=== PATIENT | male | born 1955 | race Caucasian/White ===

== ENCOUNTER 2024-08-07 15:55 | Outpatient (AMB) | payer MEDICARE, SELFPAY ==
--- NOTE | 2024-08-07 15:58 | MHC.PC.OV ---
Vital Signs 08/07/24 15:59 Height 5 ft 5.35 in Weight 198 lb 4 oz BMI 32.6 BP 152/76 H Blood Pressure Location Lt brachial Position Sitting Pulse 77 Pulse Source Pulse Oximeter Temp 97.3 F Temp Source Temporal Artery Scan Pulse Oximetry (%) 97 Oxygen Delivery Method Room Air Intake Visit Reasons: establish care Director Cloud Transformation Required: No Accompanied by: Self / Same As Patient Allergies shell fish Allergy (Mild, Uncoded 08/07/24 16:08) sweating and an itchy throat. Medication List - Last Reconciled 08/07/24 by Lucien Luevano PA-C albuterol sulfate 90 mcg/actuation inhalation atenolol mg PO atorvastatin 10 mg PO DAILY escitalopram oxalate 10 mg PO DAILY losartan 100 mg PO DAILY metformin ER 500 mg PO DAILY omeprazole 20 mg PO DAILY rivaroxaban (Xarelto) 20 mg PO DAILY HPI establish care HPI Details Patient is a 69-year-old male here today establish care visit. Previous PCP was Patient has a past medical history significant for hypertension, hyperlipidemia, GERD, type 2 diabetes and AFib, COPD . .. COPD: Patient was a previous smoker, he does use an albuterol inhaler from time to time . He otherwise reports no shortness of breath or regular cough. .. AFib: Cardiac health concerns persist as indicated by atrial fibrillation episodes, and possible cardiac ablation has been considered. He continues on Xarelto without overt sent to bleeding. He is under rate control with a beta-radha. .. Hypertension: Blood pressure today in office elevated, he continues on losartan in beta-radha. He does not regularly check his blood pressure at this time. Advised on starting blood pressure monitoring at home and if systolic blood pressures above 140 will consider make an adjustment in antihypertensive medication .. Hyperlipidemia: Patient continues on atorvastatin 10 mg without side effect. PLAN: Will check a fasting lipid to ensure appropriate total cholesterol and LDL .. Type 2 diabetes: Patient continues on metformin 500 mg daily over the past 10-15 years. Today's A1c is 6.5. .. Class 1 obesity: Patient does understand his BMI is over 30 will continue working being physically active and adapting to better eating habits to reduce his weight Colon cancer screening- Has polyps - gets Colon done Dr [facility] Social History (Updated 08/07/24 @ 16:15 by Lucien Luevano PA-C) Alcohol intake: former Patient Tobacco Use Status: Former Tobacco user Current occupational status: retired Current occupation: [employer] office Spinal Integration Questionnaire PHQ-9 Over the last 2 weeks, how often have you been bothered by any of the following problems? 1. Little interest or pleasure in doing things: not at all 2. Feeling down, depressed, or hopeless: not at all 3. Trouble falling or staying asleep, or sleeping too much: not at all 4. Feeling tired or having little energy: not at all 5. Poor appetite or overeating: not at all 6. Feeling bad about yourself - or that you are a failure or have let yourself or your family down: not at all 7. Trouble concentrating on things, such as reading the newspaper or watching television: not at all 8. Moving or speaking so slowly that other people could have noticed. Or the opposite - being so fidgety or restless that you have been moving around a lot more than usual: not at all 9. Thoughts that you would be better off or of hurting yourself in some way: not at all Total score: 0 Depression Screening Interpretation: Negative Depression Screening Done: Yes 58688 - PHQ-9 Billing: Yes Source: Developed by Drs. Jeremiah Stewart, Debra Jackson, Shahid Mcallister and colleagues, with an educational alfredo from [email or web address]. Thrive Questionnaire Date Thrive assessed: 08/07/24 I am a: Patient What is your living situation today?: I have a steady place to live Within the past 12 months, did the food you bought not last and you didn't have the money to get more?: Never true Within the past 12 months, did you worry whether your food would run out before you got money to buy more?: Never true Do you have trouble paying for medicines?: No Do you have trouble getting transportation to medical appointments?: No Do you have trouble paying your heating and electricity bill?: No Do you have trouble taking care of your child, family member or friend?: No Do you have trouble with day-to-day activities such as bathing, preparing meals, shopping, managing finances, etc.?: No Are you currently unemployed and looking for a job?: No Are you interested in more education?: No Please select the resources that you would like help with: None Currently or been in a relationship where the following occur: No concerns reported THRIVE Score: 0 AUDIT C Alcohol Use Questionnaire (AUDIT-C) 1. How often do you have a drink containing alcohol?: Never 3. How often do you have six or more drinks on one occasion?: Never Total Score: 0 JOSE-7 AMB Questionnaire JOSE-7 Date JOSE - 7 assessed: 08/07/24 Feeling nervous, anxious, or on edge: 0 = Not at all Not being able to stop or control worryin = Not at all Worrying too much about different things: 0 = Not at all Trouble relaxin = Not at all Being so restless that it is hard to sit still: 0 = Not at all Becoming easily annoyed or irritable: 0 = Not at all Feeling afraid as if something awful might happen: 0 = Not at all Total JOSE-7 score (0-4 normal; 5-9 mild; 10-14 moderate; 15-21 severe): 0 Source: Developed by Drs. Jeremiah Stewart, Debra Jackson, Shahid Mcallister and colleagues, with an educational alfredo from [email or web address]. JOSE-7 Assessment Billing JOSE-7 Assessment Tool: JOSE-7 Assessment 97639 Review of Systems Const Denies headache(s) Eyes Denies loss of vision ENT Denies vertigo, Denies dizziness, Denies headache(s) and Denies sore throat Card Denies chest pain, Reports irregular heart rhythm, Denies leg edema, Denies lightheadedness and Reports palpitations Resp Denies cough, Denies hemoptysis and Denies wheezing GI Denies abdominal pain, Denies melena, Denies constipation, Denies diarrhea and Denies vomiting Denies dysuria, Denies urinary frequency and Denies urinary urgency Musc Denies arthralgias, Denies joint swelling, Denies numbness and Denies tingling Neuro Denies Abnormal speech present, Denies behavioral changes, Denies vertigo, Denies dizziness, Denies headache(s), Denies loss of vision, Denies memory loss, Denies numbness and Denies tingling Psych Denies anxiety, Denies behavioral changes, Denies depression, Denies memory loss and Denies panic attacks Endo Reports palpitations Mathew/Lymph Denies easy bleeding and Denies easy bruising Aller/Immun Denies wheezing Physical exam (Primary Care) Vital Signs: Last Vital Signs Temp 97.3 F 08/07/24 15:59 Pulse 77 08/07/24 15:59 BP 152/76 H 08/07/24 15:59 Pulse Ox 97 08/07/24 15:59 Oxygen Delivery Method Room Air 08/07/24 15:59 BMI result Body Mass Index 32.6 BMI Assessment/Plan discussion: High BMI High, discussed plan: lifestyle, weight reduction, dietary and physical activity Tobacco/Smoking Status: Tobacco use Status Patient Tobacco Use Status Former Tobacco user 08/07/24 16:15 PHQ-9: PHQ-9 Score PHQ-9: Total score 0 08/07/24 16:27 Depression Screening Interpretation: Negative Thrive Assessment: Date of Thrive Assessment Date Thrive assessed 08/07/24 08/07/24 16:06 Currently or been in a relationship where the following occur: No concerns reported Const General: healthy appearing, no acute distress, alert and awake Nutritional Appearance: well nourished Orientation/consciousness: oriented to person, oriented to place and oriented to time HENMT Ears: TM's normal bilaterally General nose exam: Normal nasal mucous membranes and turbinates present Eyes Conjunctivae: conjunctivae normal Sclerae: sclerae normal Pupils: Equal, round and reactive pupils present Neck Neck: Yes no lymphadenopathy and Yes no JVD Thyroid: Thyroid normal Carotids: no bruits Resp Effort & Inspection: normal respiratory effort and not tachypneic Auscultation: no crackles, no rales, no rhonchi and no wheezes Cardio Rate: regular rate Rhythm: regular rhythm Heart sounds: no murmurs and normal S1 and S2 GI Palpation (GI): Soft to palpation, nontender, no hepatomegaly and no splenomegaly Auscultation: normal bowel sounds Skin General skin exam: no rashes or lesions noted and dry skin Neuro General: oriented to person, oriented to place and oriented to time Cranial nerves: Yes Equal, round and reactive pupils present Speech: No Abnormal speech present Gait exam (Neuro): Normal gait present Motor exam (neuro): no tremor noted Extrem Right upper extremity: full ROM Left upper extremity: full ROM Right lower extremity: full ROM; no edema Left lower extremity: full ROM; no edema Psych Mental Status: mental status grossly normal Speech and movement: Normal speech and movement present Affect: normal affect Attitude: cooperative Thought process: Normal thought process present Results AMB Hemoglobin A1c AMB Hemoglobin A1c 6.5 % Last Edit by ANA LILIA Wilson on 08/07/24 16:27 Results Reviewed Results Reviewed: Laboratory Last Values Hgb A1c (Clinic) 6.5 % (4.0-6.0) H 08/07/24 16:06 Coding Level of Care Code New Pt Level 4 (72115) Diagnoses Primary hypertension I10 Hypertension type: primary hypertension Type 2 diabetes mellitus with hyperglycemia, without long-term current use of insulin E11.65 Diabetes mellitus complication status: with hyperglycemia Diabetes mellitus superintendent [employer] insulin use: without [employer] use Chronic atrial fibrillation I48.20 Atrial fibrillation type: unspecified chronic Benign prostatic hyperplasia with weak urinary stream N40.1; R39.12 Lower urinary tract symptom detail: weak urinary stream Lower urinary tract symptom presence: symptoms present Former smoker Z87.891 Centrilobular emphysema J43.2 COPD type: emphysema Emphysema type: centrilobular Additional Codes JOSE-7 Assessment Billing - JOSE-7 Assessment Tool: JOSE-7 Assessment 98834 ([id number]) PHQ-9 - 36004 - PHQ-9 Billing: Yes ([id number]) Assessment & Plan Assessment & Plan (1) HTN (hypertension): Code(s): I10 - Essential (primary) hypertension Category: Medical Qualifiers: Hypertension type: primary hypertension Qualified Code(s): I10 - Essential (primary) hypertension Plan: The patient was advised to increase frequency of blood pressure monitoring at home and a change in medication to metoprolol was discussed for enhanced control. Goal blood pressures to be below 140/90 (2) DMII (diabetes mellitus, type 2): Code(s): E11.9 - Type 2 diabetes mellitus without complications Category: Medical Qualifiers: Diabetes mellitus complication status: with hyperglycemia Diabetes mellitus superintendent [employer] insulin use: without intermediate use Qualified Code(s): E11.65 - Type 2 diabetes mellitus with hyperglycemia Plan: The current metformin regimen is continued with recommendation to monitor A1c levels to maintain glycemic control. (3) Afib: Code(s): I48.91 - Unspecified atrial fibrillation Category: Medical Qualifiers: Atrial fibrillation type: unspecified chronic Qualified Code(s): I48.20 - Chronic atrial fibrillation, unspecified Plan: A referral to an escalator installer for evaluation of candidacy for cardiac ablation was considered given current palpitations dark quite frequent in. (4) BPH (benign prostatic hyperplasia): Code(s): N40.0 - Benign prostatic hyperplasia without lower urinary tract symptoms Category: Medical Qualifiers: Lower urinary tract symptom detail: weak urinary stream Lower urinary tract symptom presence: symptoms present Qualified Code(s): N40.1 - Benign prostatic hyperplasia with lower urinary tract symptoms; R39.12 - Poor urinary stream Plan: Patient recently had an episode of UTI to which he was treated with antibiotics. He reports during that time he had urinary frequency and low urinary output. Will check a PSA on upcoming labs (5) Former smoker: Code(s): Z87.891 - Personal history of nicotine dependence Category: Social Hx Plan: Patient is a former smoker he reports quitting a year ago, does have COPD to which he uses an albuterol inhaler from time to time. (6) COPD (chronic obstructive pulmonary disease): Code(s): J44.9 - Chronic obstructive pulmonary disease, unspecified Category: Medical Qualifiers: COPD type: emphysema Emphysema type: centrilobular Qualified Code(s): J43.2 - Centrilobular emphysema Plan: Former smoker, does use albuterol inhaler from time to time. Otherwise he does not report many pulmonary symptoms. Orders: Orders Comprehensive [place]. Panel Fast 08/07/24 E11.9 - Type 2 diabetes mellitus without complications AMB Hemoglobin A1c 08/07/24 E11.9 - Type 2 diabetes mellitus without complications Prostate Specific Antigen Scr 08/07/24 N40.0 - Benign prostatic hyperplasia without lower urinary tract symptoms, Z12.5 - Encounter for screening for malignant neoplasm of prostate Complete Blood Count no Diff 08/07/24 E11.9 - Type 2 diabetes mellitus without complications Microalbumin, Random (w Creat) 08/07/24 I10 - Essential (primary) hypertension Referrals Cardiac Electrophysiology Referral I48.20 - Chronic atrial fibrillation, unspecified Medications: New rivaroxaban (Xarelto) 20 mg PO DAILY 90 tabs 1RF I48.20 - Chronic atrial fibrillation, unspecified metformin ER 500 mg PO DAILY 90 tabs 1RF 90 days E11.65 - Type 2 diabetes mellitus with hyperglycemia omeprazole 20 mg PO DAILY PRN 90 tabs 1RF REflux 90 days albuterol sulfate 90 mcg/actuation 2 puffs inhalation Q8H 8.5 grams 1RF 30 days J43.2 - Centrilobular emphysema metoprolol succinate ER 25 mg PO DAILY 90 tabs 1RF 90 days I48.20 - Chronic atrial fibrillation, unspecified losartan 100 mg PO DAILY 90 tabs 1RF 90 days I10 - Essential (primary) hypertension atorvastatin 10 mg PO DAILY 90 tabs 1RF 90 days E11.65 - Type 2 diabetes mellitus with hyperglycemia Patient Instructions: Goal: A1c to remain below 7.0, LDL to be below 100, blood pressure to be below 140/90 Barriers: Adherence to physical activity and healthy eating habits
[2024-08-07 15:59] VITALS: BP 152/76; PULSE 77; TEMP 36.3; O2SAT 97; BMI 32.6
--- OUTSIDE RECORDS SUMMARY | 2024-08-07 18:25 | XMS_ITS ---
Author Organization [facility] Address [address] [place] [address] Care Team Providers Care Service Loss Control Consultant Name Role Phone Edwin Saldaña MD Primary Care Provider Unav ailable Dru Centeno Unavailable [phone] Oliverio Florian Unavailable [phone] REASON FOR VISIT Painful thick toenails which are aggrevated by shoes and causes difficulty standing/walking Medications Medication SIG (Take, Route, Frequency, Duration) Notes Start Date End Date Status Voltaren 1 % as directed External ly apply bid to toes for 30 days Active Extra Depth Diabetic Shoes with 3 Pair Custom heat-molded multi-density innersoles for 1 year Dx: Active Encounters Encounter Location Date Provider Diagnosis [facility] [address] [address] 11/21/2023 Oliverio Florian Type 2 diabetes mellitus [...] as directed External ly apply bid to toes for 30 days Extra Depth Diabetic Shoes with 3 Pair Custom heat-molded multi-density innersoles for 1 year Dx: Next Appt Details Follow Up: 1 Year, Reason: Provider Name:Dru Centeno , 12/09/2024 09:00:00 AM, [address] [facility], [address], [place], [address], Procedure Notes * Category Sub-Category Detail Notes Keratoma Treatment Parring or Cutting o f Benign Hyperkeratotic Lesion(s) 91613 ( >4 Lesions) - The Benign hyperkeratotic [...] as necessary. Patient chooses, no pharmaceutical tx (00419) Progress Notes * Lb VILLAGOMEZ MDOB:1955 (69 yo M)Acc No.[id number]:11/21/2023 Progress Note Patient:?Lb VILLAGOMEZ Provider:?Oliverio Florian DPM :1955???Age:68 Y???Sex:Male Humberto e:11/21/2023 Address:[address] [place], [place] [id number] Pcp:Edwin Saldaña MD Subjective: * Chief Complaints: * ???1. Painful thick toenails which are aggrevated by shoes and causes difficulty standing/walking. * HPI: ???At Risk footcare:?Pt States Last PCP Visit:?Date?08/15/2022 ???Foot Pain:?Nature:?aching, stiffness.?Location?B/L, Top, Bottom, Midfoot, Forefoot and ankle.?Duration:?several months.?Onset/Cause:?wearing crocs this summer.?Course:?intermittent.?Aggrevated:?standing, walking, barefoot walking, exercise.?Treatments:?change in shoes, innersoles--pedag inserts have helped.?Quality/Severity?moderate.?Toe pain:?Nature:?aching, tenderness, burning.?Location:?5th toe, Left foot.?Duration:?several years.? * ROS:?General/Constitutional:?Nausea?denies, denies.?Vomiting?denies, denies.?Hunger Thirst?denies, denies.?Loss appetite?denies, denies.?Chills?denies, denies.?Fatigue?denies, denies.?Fever?denies, denies.?Night Sweats denies, denies.?Unexplained weight loss?denies, denies.?Unexplained weight gain?denies.?Ophthalmologic:?Blurred vision?denies.?Red eye?denies.?HEENTM:?Dentures?denies, denies.?Dizziness?denies, denies.?Glasses/contacts?denies, denies.?Retinopathy?denies, denies.?Blurred/double vision?denies, denies.?TMJ?denies, denies.?Discharge/drainage?denies, denies.?Implants?denies, denies.?Sore throat?denies.?Dental implants?denies.?Hard of hearing ?denies, denies.?Difficulty chewing/swallowing/speaking?denies, denies.?Nose bleeds?denies, denies.?Sore mouth?denies, denies.?Swollen glands?denies.?Respiratory:?On Oxygen?denies, denies.?Pneumonia/pleurisy?denies, denies.?Bronchitis?denies, denies.?Emphysema?denies, denies.?Coughing?denies, denies.?Cough blood?denies, denies.?Shortness of breath?denies, denies.?Wheezing?denies, denies.?Cardiovascular:?Pacemaker?denies, denies.?MVP?denies, denies.?WPW?denies, denies.?CHF?denies, denies.?Heart attack?denies, denies.?Septal defect?denies, denies.?Rapid beat?denies, denies.?Chest pain ?denies, denies.?Atrial Fib.?denies, denies.?Murmur/Palpitations?denies, denies.?Gastrointestinal:?Hemorrhoids?denies, denies.?Stomach/Abdominal pain?denies, denies.?Dark blood stool?denies, denies.?Irritable bowel ?denies, denies.?Constipation?denies, denies.?Diarrhea?denies, denies.?Vomiting?denies.?Hematology:?Swelling?denies, denies.?Clots?denies.?Varicose Veins?denies.?Bruising?denies, denies.?Bleeding problem?denies, denies.?Genitourinary:?Blood urine?denies, denies.?Frequent/Painfu/urination/bladder control?denies, denies.?Kidney stones?denies, denies.?Infection (UTI)?denies, denies.?Nephropathy?denies, denies.?sex trans dis (STD)?denies.?Prostate?denies.?Musculoskeletal:?Hammertoes?denies, denies.?Bunions?denies, denies.?Scoliosis/kyphosis?denies.?Back Pain?denies.?Muscle Cramps/ Resting?denies.?Muscle cramps / walking?denies, denies.?Generalized aches and pains?denies, denies.?Weakness?denies, denies.?Integ.:?Murray?denies, denies.?Scars?denies, denies.?Corns/calluses?denies, denies.?Ingrown nails?denies, denies.?Painful nails?denies, denies.?Open Sores?denies.?Rashes?denies, denies.?Neurologic:?Difficulty sleeping?denies, denies.?Bipolar?denies.?Brain disorder?denies, denies.?Numbness?denies.?Balance trouble?denies, denies.?Confusion?denies, denies.?Fainting/blackouts?denies, denies.?Headache?denies.?Tingling?denies.?Tremors?denies, denies.? * Medical History:? Objective: * Vitals:? * Examination: ???Ophthalmology Referral: ?DIABETES EYE EXAM?Diabetic Retinopathy Screening:?No ?Findings of Diabetic Eye Exam:?no retinopathy?Neurological: ?SENSORY:?Neurological exam demonstrates, reduced vibration sensation, B/L, at Forefoot, 5.07 monofilament test performed at plantar aspects of 5 varied sites per foot shows sensation, reduced , B/L, Neurological exam demonstrates pop t4 pipj.?TINEL'S COMPRESSION:?Negative tarsal tunnel, chuck pedis, and medial calcaneal nerves B/L.?BABINSKI REFLEX:?absent.?Vascular: ?DP PULSES (B):? 2/4, B/L.?PT PULSES (B):? 2/4, B/L.?CAPILLARY FILL TIME:?3 secs. per digit, B/L.?TROPHIC CONDITION-TEXTURE/ELASTICITY/TURGOR/HAIR GROWTH (B):?normal, B/L.?TEMPERTURE GRADIENT (C):?warm to cool, proximal to distal, B/L.?PIGMENTATION:?normal, B/L.?EDEMA (C):?no edema.?TELANGECTASIA:?absent.?VARICOSITIES:?absent.?Dermatologic: ?SKIN FINDINGS:?Skin exam reveals Keratotic lesion(s) located at, SUB MTH (s), 1, 3, 5, B/L , Heel(s), B/L .?General Examination: ?GENERAL APPEARANCE:?pleasant, alert, well nourished, well developed, well hydrated, with good attention to hygene/body habitus, and in no acute distress.?ORIENTED:?person,place, and time.?Neuroma Pain: ?PALPATION:?No interspace pain noted on palpation.?Orthopedic: ?MUSCLE STRENGTH:?5/5 all groups in a symmetrical fashion , B/L.?GAIT ABNORMALITY:?pronated, abducted, B/L.?DIGITAL DEFORMITIES:? Digital contracture, PIPJ, 2-5 B/L, incompl- reducable with WB, or to push-up test, no over, nor underlapping.?Nails: ?NAILS are:? Elongated, overgrown, dystrophic, lytic, greater than 3mm thick, discolored and friable with crumbly malodorous subungual debris, with dull to no pain on palpation due to neuropathy, T5, proximal clearing of nail __90__ %.? Assessment: * Assessment: 1.?Type 2 diabetes mellitus with diabetic polyneuropathy - E11.42 (Primary)???2.?Other hammer toe(s) (acquired), left foot - M20.42???3.?Other hammer toe(s) (acquired), right foot - M20.41???4.?Pain in left foot - M79.672?? 5.?Pain in right foot - M79.671???6.?Metatarsalgia, left foot - M77.42???7.?Metatarsalgia, right foot - M77.41???8.?Tinea unguium - B35.1???9.?Pain in right toe(s) - M79.674???10.?Pain in left toe(s) - M79.675??? Plan: * Treatment: 2.?Pain in right foot? Start Voltaren Gel, 1 %, as directed, Externally, apply bid to toes, 30 days, 90, Refills 6.?? * Procedures:?Debride Nails 1-5:?Procedure:?Nail debridement performed extensively to reduce/remove overall nail length and girth, subungual debris, and necrotic tissue, by manual and electrical means by use of a nail nipper and/or dremel, to more viable healthy nail plate or bed tissue 1-5. Silver nitrate used for any petechial bleeding as necessary. Patient chooses, no pharmaceutical tx (71123).?Keratoma Treatment:?Parring or Cutting of Benign Hyperkeratotic Lesion(s)?81579 ( >4 Lesions) - The Benign hyperkeratotic lesions, as described above were pared, and/or cut utilizing a sterile #15 blade, tissue nippers, and/or dremel.? * Procedure Codes:?23626 DEBRI DE NAIL, 1-5, Modifiers: XS , 47241 TRIM SKIN LESIONS, OVER 4, Modifiers: XS * Follow Up:?1 Year * Images: * The named appointment provid er may or may not be the originator of this progress note, and it is not deemed complete until electronically signed by the appointment provider. Sign off status: Pending * Provider:Abiel Florian DPM Date:? 024 Generated for Rio akhtar/Juli/Bonnie on:?08/07/2024 06:25 PM EDT History and Physical Notes * [...] no acute distress ORIENTED: person,place, and ti il Ophthalmology Referral DIABETES EYE EXAM Diabetic Retinopa [...]
--- OUTSIDE RECORDS SUMMARY | 2024-08-07 18:25 | XMS_ITS ---
Author Organization [facility] Address [address] [place] [address] Care Team Providers Care Surgical Elastic Knitter Name Role Phone Edwin Saldaña MD Primary Care Provider Unav ailable Dru Centeno Unavailable [phone] Oliverio Florian [phone] Encounters Encounter Location Date Provider Diagnosis [address] [address] 12/12/2023 Oliverio Florian Plan Of Treatment Next Appt Details Provider Name:Dru Centeno , 12/09/2024 09:00:00 AM, [address] [place] [address], [id number], Progress Notes * Lb VILLAGOMEZ MDOB:1955 (69 yo M)Acc No.[id number]:12/12/2023 Progress Note Patient:?Lb VILLAGOMEZ Provider:?Oliverio Florian DPM :1955???Age:68 Y???Sex:Male Humberto e:12/12/2023 Address:[address] [place] [id number] Pcp:Edwin Saldaña MD Subjective: * Chief Complaints: * ??? * Medical History:? Objective: * Vitals:? Assessment: Plan: * Treatment: * Images: * The named appointment provid er may or may not be the originator of this progress note, and it is not deemed complete until electronically signed by the appointment provider. Sign off status: Pending * Provider:Abiel Florian DPM Date:? 024 Generated for Rio akhtar/Juli/Bonnie on:?08/07/2024 06:25 PM EDT
--- OUTSIDE RECORDS SUMMARY | 2024-08-07 18:25 | XMS_ITS | Clinical Summary ---
Author Organization [employer] [facility] Address [address] [place] [address] Care Team Providers Care Manager Emergency Department Name Role Phone Edwin Saldaña MD Primary Care Provider Family History Medical History Relation Name Comments Stroke Father Relation Name Status Comments Father Social History Tobacco Use Types Packs/Day Years Used Date Smoking Tobacco: Former Smokeless Tobacco: Never Alcohol Use Standard Drinks/Week Comments No 0 (1 standard drink = 0.6 oz pur e alcohol) Sex and Gender Information Value Date Recorded Sex Assigned at Not on file Legal Sex Male 1:29 AM EST Gender Identity Not on file Sexual Orientation Not on file Obstetrics History Last Filed Vital Signs Vital Sign Reading Time Taken Comments Blood Pressure 138/62 05/20/2022 1:09 PM EST Sit ting L Arm Pulse 67 05/20/2022 1:09 PM EST Temperature - - Respiratory Rate - - Oxygen Saturation - - Inhaled Oxygen Concentration - - Weight 88.9 kg (196 lb) 05/20/2022 1:09 PM EST Height 175.3 cm (5' 9 ) 05/20/2022 1:09 PM EST Body Mass Index 28.94 05/20/2022 1:09 PM EST Plan of Treatment Health Maintenance Due Date Last Done Comments Diabetes: Annual GFR (Glomer ular Filtration Rate) 1955 Diabetes: Annual Foot Exam 1967 Diabetes: Annual Retina Eye Exam 1967 DTaP,Tdap,and Td Vaccines (1 - Tdap) 1976 Pneumococcal Vaccine: 50+ Ye ars (1 of 1 - PCV) 2007 Zoster Vaccines (1 of 2) 2007 RSV Immunization Adult Patie nts (1 - Risk 60-74 years 1-dose series) 2017 Abdominal Aortic Aneurysm (A AA) Screen 03/26/2022 Cholesterol Screening (Lipid Panel) 03/26/2022 Colorectal Cancer Screening: Colonoscopy 03/26/2022 Depression Screening 03/26/2022 Diabetes: Annual Urine Albumin-Creatinine Ratio (uACR) 03/26/2022 Diabetes: Blood Sugar Contro l Test (HGBA1C) 03/26/2022 Hepatitis C Screening 03/26/2022 Hypertension/CHF/CAD Annual BMP Blood Test 03/26/2022 Medicare Annual Wellness Visit 03/26/2022 Social Influencers of Health Screening 03/26/2022 Falls Risk Assessment 2022 COVID-19 Vaccine (2023-2 5 season) 2023 Influenza Vaccine (Season Ended) 2024 HIB Vaccines Aged Out No longer eligi ble based on patient's age to complete this topic HPV Vaccines Aged Out No longer eligi ble based on patient's age to complete this topic Hepatitis A Vaccines Aged Out No long er eligible based on patient's age to complete this topic Hepatitis B Vaccines Aged Out No long er eligible based on patient's age to complete this topic IPV Vaccines Aged Out No longer eligi ble based on patient's age to complete this topic MMR Vaccines Aged Out No longer eligi ble based on patient's age to complete this topic Meningococcal ACWY Vaccine Aged Out N o longer eligible based on patient's age to complete this topic Meningococcal B Vaccine Aged Out No l onger eligible based on patient's age to complete this topic RSV Immunization Patients Un manhaz 20 months Aged Out No longer eligible b ased on patient's age to complete this topic Varicella Vaccines Aged Out No longer eligible based on patient's age to complete this topic Care Teams Manager Emergency Department Relationship Specialty Start Date End Date Edwin Saldaña MD [address] [place] [address] [place] [address] PCP - General Internal Medicine 06/18/20
--- OUTSIDE RECORDS SUMMARY | 2024-08-07 18:25 | XMS_ITS ---
[facility] camilo [place] Address [address] [place] [address] Care Team Providers Care Office Services Associate Name Role Phone Edwin Saldaña MD Primary Care Provider Unav ailable Dru Centeno Unavailable [phone] Allergies Allergen (clinical drug ingredient) Drug/Non Drug Allergy documented on EMR Reaction Allergy Type Onset Date Status Shellfish (FN) Shellfish-derived Products Unknown Drug Allergy Active REASON FOR VISIT At Risk Footcare, Toe Irritation, Foot pain Medications Medication SIG (Take, Route, Frequency, Duration) Notes Start Date End Date Status metFORMIN HCl ER 500 MG TAKE 1 TABLET BY MOUTH EVERY DAY Oral for 90 Active Xarelto 20 MG 1 tablet with food Orally Once a day for 30 day(s) Active Omeprazole 40 MG TAKE ONE CAPSULE BY MOUTH EVERY DAY ONE HOUR BEFORE A MEAL Oral for 30 Active Aspirin Not-Taking Voltaren 1 % as directed External ly apply bid to toes for 30 days Active Atenolol 25 MG 1 tablet Orally Once a day for 30 day(s) Active Lexapro Active Extra Depth Orthopedic Shoes (1 Pair) with Customized Heat Molded Multidensity Innersoles (3 Pair) as directed Dx: NIDDM (E11.9), Hammertoe Foot Deformity (M20.41,M20.42), Preulcerative Skin Lesion(s) (L85.1) 12/13/2023 Active Atorvastatin Calcium 10 MG 1 tablet Orally Once a day for 30 day(s) Active Losartan Potassium 100 MG 1 tablet Orally Once a day for 30 day(s) Active Social History Tobacco use other than smoking: Question Answer Notes Are you an other tobacco user? No Problems Problem Type SNOMED Code ICD Code Onset Dates Problem Status W/U Status Risk Notes Problem Type 2 diabetes mellitus without complication (167438425) Type 2 diabetes mellitus without complication (E11.9) Active confirmed Problem Acquired hammer toe of right foot (007805531277310 5) Other hammer toe(s) (acquired), right foot (M20.41) Active confirmed Problem Acquired hammer toe of left foot (843180205145834 3) Other hammer toe(s) (acquired), left foot (M20.42) Active confirmed Vital Signs Height 5ft6in in 12/13/2023 Weight 180 lbs 12/13/2023 BMI 29.05 kg/m2 12/13/2023 Blood pressure systolic 116 mm Hg 12/13/19 24 Blood pressure diastolic 65 mm Hg 024 Encounters Encounter Location Date Provider Diagnosis [facility] [address] [address] 12/13/2023 Dru De La Cruzunier Type 2 diabetes mellitus without complication E11.9 ; Other hammer toe(s) (acquired), left foot M20.42 ; Pain in right foot M79.671 ; Contusion of right foot, initial encounter S90.31XA and Other hammer toe(s) (acquired), right foot M20.41 Assessments Encounter Date Diagnosis (ICD Code) Assessment Notes Treatment Notes Treatment Clinical Notes Section Notes 12/13/2023 Type 2 diabetes mellitus without complication (ICD-10 - E11.9) 12/13/2023 Other hammer toe(s) (acquired), left foot (ICD-10 - M20.42) 12/13/2023 Pain in right foot (ICD-10 - M79.671) 12/13/2023 Contusion of right foot, initial encounter (ICD-10 - S90.31XA) 12/13/2023 Other hammer toe(s) (acquired), right foot (ICD-10 - M20.41) Patient Educated with: DIABETIC FOOT CARE INSTRUCTIONS.p df (DIABETIC FOOT CARE INSTRUCTIONS.p df) Plan Of Treatment Medication Medication Name Sig Start Date Stop Date Notes Extra Depth Orthopedic Shoes (1 Pair) with Customized Heat Molded Multidensity Innersoles (3 Pair) as directed Dx: NIDDM (E11.9), Hammertoe Foot Deformity (M20.41,M20.42), Preulcerative Skin Lesion(s) (L85.1) 12/13/2023 Treatment Notes Assessment Notes Other hammer toe(s) (acquired), right fo ot Patient Educated with: DIABETIC FOOT CARE INSTRUCTIONS.pdf (DIABETIC FOOT CARE INSTRUCTIONS.pdf) Pending Test Test Name Order Date X ray : Foot, right 3V 12/13/2023 Next Appt Details Follow Up: 1 Year, Reason: Provider Name:Dru Centeno , 12/09/2024 09:00:00 AM, [address], [address], [place], [address], Progress Notes * Lb VILLAGOMEZ MDOB:1955 (69 yo M)Acc No.[id number]:12/13/2023 Progress Note Patient:?Lb VILLAGOMEZ Provider:?Dru Centeno DPM :1955???Age:68 Y???Sex:Male Humberto e:12/13/2023 Address:[address] [place], [place] [id number] Pcp:Edwin Saldaña MD Subjective: * Chief Complaints: * ???At Risk FootcareToe Irrit ationFoot pain * HPI: ???At Risk footcare:?Pt States Last PCP Visit:?Date?10/26/2023 ???Toe pain:?Location:?B/L feet.?Duration:?several years.?Course:?worse.?Aggravated by:?shoes, any pressure.?Treatments:?change in shoes.?Foot Pain:?Nature:?aching?,?bruising?, discolor,?swelling?,?tenderness?,?throbbing.?Location:?Top, RIGHT.?Duration:?since DOI [ a week ago].?Onset:?states trauma ( fell in driveway).?Aggravated:?any pressure , standing, shoes.?Treatments:?rest/alter normal daily activity, ice.? * ROS:?General/Constitutional:?Nausea?denies, denies.?Vomiting?denies, denies.?Hunger Thirst?denies, denies.?Loss appetite?denies, denies.?Chills?denies, denies.?Fatigue?denies, denies.?Fever?denies, denies.?Night Sweats denies, denies.?Unexplained weight loss?denies, denies.?Unexplained weight gain?denies.?Ophthalmologic:?Blurred vision?denies.?Red eye?denies.?HEENTM:?Dentures?denies, denies.?Dizziness?denies, denies.?Glasses/contacts?admits.?Retinopathy?denies, denies.?Blurred/double vision?denies, denies.?TMJ?denies, denies.?Discharge/drainage?denies, denies. Implants?denies, denies.?Sore throat?denies.?Dental implants?denies.?Hard of hearing ?denies, denies.?Difficulty chewing/swallowing/speaking?denies, denies.?Nose bleeds?denies, denies.?Sore mouth?denies, denies.?Swollen glands?denies.?Respiratory:?On Oxygen?denies, denies.?Pneumonia/pleurisy?denies, denies.?Bronchitis?denies, denies.?Emphysema?denies, denies.?Coughing?denies, denies.?Cough blood?denies, denies.?Shortness of breath?denies, denies.?Wheezing?denies, denies.?Cardiovascular:?Pacemaker?denies, denies.?MVP?denies, denies.?WPW?denies, denies.?CHF?denies, denies.?Heart attack?denies, denies.?Septal defect?denies, denies.?Rapid beat?denies, denies.?Chest pain ?denies, denies.?Atrial Fib.?denies, denies.?Murmur/Palpitations?denies, denies.?Gastrointestinal:?Hemorrhoids?denies, denies.?Stomach/Abdominal pain?denies, denies.?Dark blood stool?denies, denies.?Irritable bowel ?denies, denies.?Constipation?denies, denies.?Diarrhea?denies, denies.?Vomiting?denies.?Hematology:?Swelling?denies, denies.?Clots?denies.?Varicose Veins?denies.?Bruising?admits, on anticoagulants.?Bleeding problem?admits, on anticoagulants.?Genitourinary:?Blood urine?denies, denies.?Frequent/Painfu/urination/bladder control?denies, denies.?Kidney stones?denies, denies.?Infection (UTI)?denies, denies.?Nephropathy?denies, denies.?sex trans dis (STD)?denies.?Prostate?denies.?Musculoskeletal:?Hammertoes?admits.?Bunions?denies, denies.?Scoliosis/kyphosis?denies.?Back Pain?denies.?Muscle Cramps/ Resting?denies.?Muscle cramps / walking?denies, denies.?Generalized aches and pains?admits.?Weakness?denies, denies.?Integ.:?Murray?denies, denies.?Scars?denies, denies.?Corns/calluses?admits.?Ingrown nails?denies, denies.?Painful nails?denies, denies.?Open Sores?denies.?Rashes?denies, denies.?Neurologic:?Difficulty sleeping?denies, denies.?Bipolar?denies.?Brain disorder?denies, denies.?Numbness?denies.?Balance trouble?denies, denies.?Confusion?denies, denies.?Fainting/blackouts?denies, denies.?Headache?denies.?Tingling?denies.?Tremors?denies, denies.? * Medical History:? * Surgical History:?left knee arthroscopy 10 yrs ago & 20 yrs ago * Hospitalization/Major Diagno stic Procedure:?[facility], Anxiety 02/2020[facility], Anxiety 02/2020 * Family History:?Mother: dece ased, diagnosed with Other malignant neoplasm of unspecified site.?Father: , diagnosed with Unspecified essential hypertension.?Maternal Grand Mother: diagnosed with Diabetic - NIDDM.? * Social History:?Tobacco Use:?Tobacco Use/Smoking?Are you a:: former smoker , How long has it been since you last smoked?: < 1 month.?Tobacco use other than smoking?Are you an other tobacco user??No ???Miscellaneous:?Caffeine: yes, 2 cups per day. ?Children: yes, 1. ?Exercise: yes, walking, hiking. ?Marital status: . ?Occupation: retired. * Medications:?TakingAtenolol 25 MG Tablet 1 tablet Orally Once a day Atorvastatin Calcium 10 MG Tablet 1 tablet Orally Once a day Lexapro Losartan Potassium 100 MG Tablet 1 tablet Orally Once a day metFORMIN HCl ER 500 MG Tablet Extended Release 24 Hour TAKE 1 TABLET BY MOUTH EVERY DAY Oral Omeprazole 40 MG Capsule Delayed Release TAKE ONE CAPSULE BY MOUTH EVERY DAY ONE HOUR BEFORE A MEAL Oral Xarelto 20 MG Tablet 1 tablet with food Orally Once a day Voltaren 1 % Gel as directed Externally apply bid to toes Taking Atenolol 25 MG Tablet 1 tablet Orally Once a day Taking Atorvastatin Calcium 10 MG Tablet 1 tablet Orally Once a day Taking Lexapro Taking Losartan Potassium 100 MG Tablet 1 tablet Orally Once a day Taking metFORMIN HCl ER 500 MG Tablet Extended Release 24 Hour TAKE 1 TABLET BY MOUTH EVERY DAY Oral Taking Omeprazole 40 MG Capsule Delayed Release TAKE ONE CAPSULE BY MOUTH EVERY DAY ONE HOUR BEFORE A MEAL Oral Taking Xarelto 20 MG Tablet 1 tablet with food Orally Once a day Taking Voltaren 1 % Gel as directed Externally apply bid to toes Not-Taking/PRNAspirin Medication List reviewed and reconciled with the patientNot-Taking/PRN Aspirin Medication List reviewed and reconciled with the patient * Allergies:?Shellfish-derived Productsyes[Allergies Verified] Objective: * Vitals:?Ht: 5ft6in, Wt:180, BMI:29.05, Shoe size: 10.5-11, BP:116/65mm Hg, BS: not taken, Ht-cm: 167.64 cm, Wt-k.65 kg. * ???Past Orders: ???Lab:HEMOGLOBIN A1C (GLYCO HEMOGLOBIN) (Order Date - 11/22/2022) (Collection Date & Time - 11/22/2022 12:19 PM) ? Value Reference Range ?HEMOGLOBIN A1C % (HH) 6.5 * Examination: ???Orthopedic: ?MUSCLE STRENGTH:?5/5 all groups in a symmetrical fashion, B/L.?GAIT ABNORMALITY:?antalgic.?FOOT MORPHOLOGY:?Reveals pain, swelling, ecchymosis , dorsal , RIGHT , Pes Cavus structure , (-) Charcot collapse/destruction noted at MTJ.?DIGITAL DEFORMITIES:?Digital contracture, PIPJ, 2-5 B/L, incompl-reducible to push-up test, no over, nor underlapping,?there is?evidence of shoe producing skin irritation.?FOOTWEAR:?worn, non-supportive, shoe gear properties exacerbate patient's foot/toe deformity.?X-Rays - IMAGING REPORT: ?Clinical Indication(s):?Evaluate for Fracture.?Views:?3 views of Foot , AP , LAT , LO , RIGHT.?Findings:?normal bone and soft tissue density consistent for patients age and sex.?Fracture:?Negative fractures identified.?Dermatologic: ?SKIN FINDINGS:?Skin exam reveals normal texture, elasticity, and turgor. There are no masses. The interspaces are clear, B/L, Skin exam reveals Keratotic lesion(s) located at , SUB MTH (s) , 1 , B/L , SUB MTH (s) , 2 , B/L , SUB MTH (s) , 3 , B/L , SUB MTH (s) , 5 , B/L , Heel(s) , B/L.?Vascular: ?DP PULSES (B):?2/4, B/L.?PT PULSES (B):?2/4, B/L.?CAPILLARY FILL TIME:?3 secs. per digit, B/L.?TROPHIC CONDITION-TEXTURE/ELASTICITY/TURGOR/HAIR GROWTH (B):?normal, B/L.?TEMPERTURE GRADIENT (C):?normal, warm to cool, proximal to distal, B/L, B/L.?PIGMENTATION:?normal, B/L.?EDEMA (C):?absent, B/L.?Neurological: ?SENSORY:?Neurological exam reveals intact sensorium, pain sensation normal, vibration sensation intact, pinprick sensation is normal in the lower extremities, 5.07 monofilament test performed at plantar aspects of 5 varied sites per foot shows sensation, normal, B/L, Pt denies, anesthesia, burning, paresthesia, tingling, B/L.?Ophthalmology Referral: ?DIABETES EYE EXAM?Procedure Performed:?Yes ?Date of Exam Performed?07/11/2023 ?Diabetic Retinopathy Screening:?Yes ?Findings of Diabetic Eye Exam:?no retinopathy?General Examination: ?GENERAL APPEARANCE:?Reveals a pleasant, alert, well nourished, well- developed, well hydrated individual, who demonstrates proper attention to hygiene/body habitus, and is in no acute distress, Pt serves as own historian for office visit today.?ORIENTED:?person, place, and time.?FOOT EXAM:?Lower Extremity Neurological Exam performed:?Yes ?Visual exam of foot performed:?Yes ?Date?12/13/2023 ?Footwear Evaluation?Footwear Evaluation performed:?Yes??? Assessment: * Assessment: 1.?Type 2 diabetes mellitus without complication - E11.9???2.?Other hammer toe(s) (acquired), left foot - M20.42???Specify :Chronic problem, Worse (4),Rx Management (4)???3.?Pain in right foot - M79.671???4.?Contusion of right foot, initial encounter - S90.31XA???Specify :Acute problem, Complicated w/ Multiple Tx Options(4),Dx New problem, Prognosis Uncertain (4)???5.?Other hammer toe(s) (acquired), right foot - M20.41 (Primary)???Specify :Chronic problem, Worse (4),Rx Management (4)??? Plan: * Treatment: 2.?Pain in right foot?Imaging: X ray : Foot, right 3V * Procedure Codes:?03441 X-RAY EXAM OF RIGHT FOOT 3V, Modifiers: 26 , RT * Preventive Medicine:? ??Counseling:?Discussion:?-14: Office or other outpatient visit for the evaluation and management of an established patient, which required a medically appropriate history and/or examination and MODERATE level of DECISION MAKING for: 1 OR MORE CHRONIC PROBLEM(S) THATS WORSENING, 2 STABLE CHRONIC PROBLEMS, A NEWLY DIAGNOSED PROBLEM WITH UNCERTAIN PROGNOSIS, AN ACUTE COMPLICATED INJURY WITH MULTIPLE TREATMENT OPTIONS, OR AN ACUTE PROBLEM WITH ACCOMPANYING SYSTEMIC SYMPTOMS, THAT POSE(S) A MODERATE RISK OF MORBIDITY. THIS CONDITION MAY ALSO INCLUDE RX DRUG MANAGEMENT, OR A DECISON FOR MINOR SURGERY. The visit on the day of the encounter encompassed interpreting the data and educating the patient as to the nature of their condition, treatment options available according to their individual PMH, meds, allergies, and overall health/living conditions, as well as any potential risks or complications that may occur from a failure to adhere to, and participate in, the recommended course of therapy. The discussion included a complete verbal, and/or written explanation of the examination results, any x-rays taken, the proposed diagnosis, and outline of the treatment plan. A schedule for future care needs was also explained. The patient verbalized an understanding of the instructions at this time and agreed to be an active participant in their treatment. If the patient should think of any questions or concerns after the visit, I have encouraged the patient to call the office.?Digital Surgery:?Digital surgery was discussed with the patient, We elected to try conservative treatment at the present time, due to the patients medical history and increased asssociated post-operative risks.?Digital Treatment:?HT- I explained to the patient the possible etiologies of Hammertoes, including genetics/foot type/shoegear/activity level/exercise routine and the risks/benefits of all the different treatment options for their pain including: No treatment at all, Rest, Ice, New/supportive/wider/deeper Shoegear, Digital Padding/Strapping/Taping/Bracing/Gel protective sleeves, Foot/Ankle AFO Bracing, Stretching exercises, Deep Tissue Massage, Arch support/shoe inserts with splay metatarsal padding, and Custom orthoses. I insisted that any digital devices be removed daily and not worn overnight for safety. The patient is to carefully examine the toes daily for any skin irritation while using any splinting or padding device. The advantages and disadvantages of each option were discussed and the patients questions re: shoegear, padding, custom vs prefabricated inserts, activity level, and consistency in home treatment regimens for optimal success were answered to their verbally confirmed satisfaction.?P.R.I.C.E.:?The patient was counseled on the use of P.R.I.C.E. and NSAIDS (if well tolerated) to aid in the recovery from their painful condition.?Shoe Gear Counseling:?SHOE Rx - The patient was counseled in great detail on their muscoloskeletal foot and toe deformities which coincided with the dermatological presentations visualized on exam. We discussed how their deformities put the integrity of their feet at risk for potential pedal complications which makes the accomidative diabetic shoes and cutomizable inserts medically necessary. We discussed the different shoe and insert treatment types and options, as well as the important advantages for adhering to regularly wearing these accomidative devices daily. The patient was made aware of the fact that a failure to abide by these recommedations may be deleterious to their foot health as they are able to prevent many pedal complications such as skin irritation, skin ulceration, infection, and even loss of toe/foot/leg/or life. Time was also spent with the patient dispensing and discussing proper diabetic footcare techniques including daily skin moisturization, daily foot inspection for any interruption in skin integrity including open lesions, or sign of infection such as redness/malodor/drainage/swelling. Also discussed and recommended were procedures regarding daily shoe inspection for the presence of internal foreign bodies as well as any visualized irregular shoe or insert wear. Patient questions re: shoes, inserts, and self foot inspections were answered to their satisfaction as the patient verbally confirmed a full understanding of the above information. A Rx for Extra Depth Orthopedic Shoes with 3 pair of custom heat-molded inserts was dispensed.? ??Screening/Special Tests:?Fall Risk?Assessment:?Performed ?Plan of Care:?Documented ?Type of fall plan of care:?Balance, strength and gait training or instruction provided ?Screening:?One fall with injury in the past year ?FALLS: Screening for Future Fall Risk?Have you had two or more falls in the past year??No ?Have you had any falls with injury in the past year??Yes * Follow Up:?1 Year * Images: * Sign off status: Completed true * Provider:?Dru Centeno DPM Date:?2023 Generated for Rio akhtar/Juli/eTteresasmitting on:?08/07/2024 06:25 PM EDT History and Physical Notes * HPI (History of Present Illness) Category Sub-Category Detail Notes Category Not es Toe pain Location: B/L feet Duration: several years Course: worse Aggravated by: shoes, any pressure Treatments: change in shoes At Risk footcare Pt States Last PCP Visit: Date: 4 Foot Pain Nature: aching , bruisin g , discolor, swelling , tenderness , throbbing Location: Top, RIGHT Duration: since DOI [ a week a go] Onset: states trauma ( fell in driveway) Aggravated: any pressure , stand ing, shoes Treatments: rest/alter normal da nayana activity, ice Examination Category Sub-Category Detail Notes Category Not es Neurological SENSORY: Neurological exa m reveals intact sensorium, pain sensation normal, vibration sensation intact, pinprick sensation is normal in the lower extremities, 5.07 monofilament test performed at plantar aspects of 5 varied sites per foot shows sensation, normal, B/L, Pt denies, anesthesia, burning, paresthesia, tingling, B/L Dermatologic SKIN FINDINGS: Skin exam reveal s normal texture, elasticity, and turgor. There are no masses. The interspaces are clear, B/L, Skin exam reveals Keratotic lesion(s) located at , SUB MTH (s) , 1 , B/L , SUB MTH (s) , 2 , B/L , SUB MTH (s) , 3 , B/L , SUB MTH (s) , 5 , B/L , Heel(s) , B/L Orthopedic GAIT ABNORMALITY: antalgic FOOT MORPHOLOGY: Reveals pain, swelli ng, ecchymosis , dorsal , RIGHT , Pes Cavus structure , (-) Charcot collapse/destruction noted at MTJ FOOTWEAR EVALUATION: worn, non-supportiv e, shoe gear properties exacerbate patient's foot/toe deformity DIGITAL DEFORMITIES: Digital contracture , PIPJ, 2-5 B/L, incompl-reducible to push-up test, no over, nor underlapping, there is evidence of shoe producing skin irritation MUSCLE STRENGTH: 5/5 all groups in a symmetrical fashion, B/L General Examination GENERAL APPEARANCE: Reveals a pleasant, alert, well nourished, well-developed, well hydrated individual, who demonstrates proper attention to hygiene/body habitus, and is in no acute distress, Pt serves as own historian for office visit today FOOT EXAM: Lower Extremity Neurological Exa m performed:: Yes Visual exam of foot performed:: Yes Date: 12/13/2023 ORIENTED: person, place, and t josh Footwear Evaluation Footwear Evaluation performe d:: Yes Ophthalmology Referral DIABETES EYE EXAM Procedure Perform ed:: Yes ?Date of Exam Performed: 07/11/2023 Diabetic Retinopathy Screening:: Yes Findings of Diabetic Eye Exam:: no retin opathy Vascular DP PULSES (B): 2/4, B/L PT PULSES (B): 2/4, B/L CAPILLARY FILL TIME: 3 secs. per digit, B/L TEMPERTURE GRADIENT (C): normal, warm to cool, proximal to distal, B/L, B/L TROPHIC CONDITION-TEXTURE/ELASTICITY/TURGOR/HAIR GROWTH (B): normal, B/L EDEMA (C): absent, B/L PIGMENTATION: normal, B/L X-Rays - IMAGING REPORT Findings: normal b one and soft tissue density consistent for patients age and sex Fracture: Negative fractures i dentified Views: 3 views of Foot , AP , LAT , LO , RIGHT Clinical Indication(s): Evaluate for Fra cture
--- OUTSIDE RECORDS SUMMARY | 2024-08-07 18:25 | XMS_ITS | Patient Health Record ---
Author Organization [facility] Address [address] [place] [address] Care Team Providers Care Last Model Department Supervisor Name Role Phone Piper MEDEL, Edwin Primary Care Provider Unav aly TarynDru Unavailable [phone] Oliverio Florian Unavailable [phone] Allergies Allergen (clinical drug ingredient) Drug/Non Drug Allergy documented on EMR Reaction Allergy Type Onset Date Status Shellfish (FN) Shellfish-derived Products Unknown Drug Allergy Active Reason For Referral No Information Medications Medication SIG (Take, Route, Frequency, Duration) Notes Start Date End Date Status Atenolol 25 MG 1 tablet Orally Once a day for 30 day(s) Active Lexapro Active Extra Depth Orthopedic Shoes (1 Pair) with Customized Heat Molded Multidensity Innersoles (3 Pair) as directed Dx: NIDDM (E11.9), Hammertoe Foot Deformity (M20.41,M20.42), Preulcerative Skin Lesion(s) (L85.1) 12/13/2023 Active Atorvastatin Calcium 10 MG 1 tablet Orally Once a day for 30 day(s) Active metFORMIN HCl ER 500 MG TAKE 1 TABLET BY MOUTH EVERY DAY Oral for 90 Active Losartan Potassium 100 MG 1 tablet Orally Once a day for 30 day(s) Active Xarelto 20 MG 1 tablet with food Orally Once a day for 30 day(s) Active Omeprazole 40 MG TAKE ONE CAPSULE BY MOUTH EVERY DAY ONE HOUR BEFORE A MEAL Oral for 30 Active Aspirin Not-Taking Voltaren 1 % as directed External ly apply bid to toes for 30 days Active Immunizations Vaccine Route Administration Date Status Comme nts Influenza Unknown 01/28/2015 Administered Influenza Unknown 12/17/2019 Administered Influenza Unknown 12/16/2022 Administered COVID-19 Pfizer BioNTech Vaccine Unknown 01/14/2021 Adm inistered Social History Alcohol Screen Question Answer Notes Did you have a drink containing alcohol in the p ast year? No Points 0 Interpretation Negative Tobacco use other than smoking: Question Answer Notes Are you an other tobacco user? No Problems Problem Type SNOMED Code ICD Code Onset Dates Problem Status W/U Status Risk Notes Problem Acquired hammer toe of right foot (465234701157336 5) Other hammer toe(s) (acquired), right foot (M20.41) Active confirmed Problem Acquired hammer toe of left foot (968593820436698 3) Other hammer toe(s) (acquired), left foot (M20.42) Active confirmed Problem Type 2 diabetes mellitus without complication (217318555) Type 2 diabetes mellitus without complication (E11.9) Active confirmed Vital Signs Blood pressure diastolic 65 mm Hg 12/13/2023 Height 5ft6in in 12/13/2023 Blood pressure systolic 116 mm Hg 12/13/2023 Weight 180 lbs 12/13/2023 BMI 29.05 kg/m2 12/13/2023 Encounters Encounter Location Date Provider Diagnosis [facility] [place] [address] [address] 12/13/2023 Dru Centeno Type 2 diabetes mellitus without complication E11.9 ; Other hammer toe(s) (acquired), left foot M20.42 ; Pain in right foot M79.671 ; Contusion of right foot, initial encounter S90.31XA and Other hammer toe(s) (acquired), right foot M20.41 [facility] [address] [place] [address] 11/20/2023 Oliverio Florian Assessments Encounter Date Diagnosis (ICD Code) Assessment [...] FOOT CARE INSTRUCTIONS.p df) Plan Of Treatment Pending Test Test Name Order Date X ray : Foot, left 3V 05/12/2020 X ray : Foot, right 3V 05/12/2020 X ray : Foot, right 3V 12/13/2023 10472-Oyvk Destruction, 04-3007/13/2015 20265-Ihlu Destruction, 04-3007/29/2015 64716-Zwoq Destruction, 04-3008/12/2015 85020-Pzqs Destruction, 04-3009/02/2015 97688-Ojgn Destruction, 04-3009/30/2015 57662-DASP SKIN LESIONS, OVER 4 03/27/20 20 46880-LTYK SKIN LESIONS, OVER 4 08/12/19 21 41894-MBUH SKIN LESIONS, OVER 4 04/27/19 22 Next Appt Details Provider Name:Dru Giron Taryn , 12/09/2024 09:00:00 AM, [address] [facility], [address], [place], [address], Insurance Providers Payer Name Payer Address Payer Phone Subscriber Number Group Number Insured Name Patient Relationship to Insured Coverage Start Date Coverage End Date Medicare National [employer] [address] [place] [address] [id number] Lb Conte Self - patient is the insured Medical (General) History Medical History History ICD Code Hypertension Chicken pox Cholesterol Diabetic High blood pressure Lyme disease Reflux Surgical History Surgery Date(Month/Year) left knee arthroscopy 10 yrs ago & 20 yr s ago Hospitalization History Reason Date(Month/Year) [facility], An[facility] 02/2020 [facility], Anxiety 02/2020
== END 2024-08-07 16:35 | disposition home or self-care (01) ==
LOC: HO.HMCH 15:56
PROVIDERS: Visit Provider Physician Assistant
DX: E11.9 Type 2 diabetes mellitus without complications (principal)

== ENCOUNTER → 2024-08-07 15:55 | Outpatient (BNVA) | payer MEDICARE, SELFPAY | PROVIDERS: Visit Provider Physician Assistant | DX: I10 Essential (primary) hypertension (principal); E11.65 Type 2 diabetes mellitus with hyperglycemia; I48.20 Chronic atrial fibrillation, unspecified; N40.1 Benign prostatic hyperplasia with lower urinary tract symptoms; R39.12 Poor urinary stream; J43.2 Centrilobular emphysema; Z87.891 Personal history of nicotine dependence | CPT/HCPCS: 83036; 96127; 99202 ==

== ENCOUNTER 2024-11-13 10:39 | Outpatient (AMB) | payer MEDICARE, SELFPAY ==
--- OUTSIDE RECORDS SUMMARY | 2023-11-21 06:00 | XMS_ITS ---
Author Organization [facility] Address [address] [place] [address] Care Team Providers Care Jewel Hole Gauger Name Role Phone Edwin Saldaña MD Primary Care Provider Unav ailable Dru Centeno Unavailable [phone] Oliverio Florian Unavailable [phone] REASON FOR VISIT Painful thick toenails which are aggrevated by shoes and causes difficulty standing/walking Medications Medication SIG (Take, Route, Frequency, Duration) Notes Start Date End Date Status Voltaren 1 % as directed External ly apply bid to toes; Duration: 30 days Active Extra Depth Diabetic Shoes with 3 Pair Custom heat-molded multi-density innersoles for 1 year Dx: Active Encounters Encounter Location Date Provider Diagnosis [facility] [address] [address] 11/21/2023 Oliverio Florian Type 2 diabetes mellitus with diabetic polyneuropathy E11.42 ; Other hammer toe(s) (acquired), left foot M20.42 ; Other hammer toe(s) (acquired), right foot M20.41 ; Pain in left foot M79.672 ; Pain in right foot M79.671 ; Metatarsalgia, left foot M77.42 ; Metatarsalgia, right foot M77.41 ; Tinea unguium B35.1 ; Pain in right toe(s) M79.674 and Pain in left toe(s) M79.675 Assessments Encounter Date Diagnosis (ICD Code) Assessment Notes Treatment Notes Treatment Clinical Notes Section Notes 11/21/2023 Type 2 diabetes mellitus with diabetic polyneuropathy (ICD-10 - E11.42) 11/21/2023 Other hammer toe(s) (acquired), left foot (ICD-10 - M20.42) 11/21/2023 Other hammer toe(s) (acquired), right foot (ICD-10 - M20.41) 11/21/2023 Pain in left foot (ICD-10 - M79.672) 11/21/2023 Pain in right foot (ICD-10 - M79.671) 11/21/2023 Metatarsalgia, left foot (ICD-10 - M77.42) 11/21/2023 Metatarsalgia, right foot (ICD-10 - M77.41) 11/21/2023 Tinea unguium (ICD-10 - B35.1) 11/21/2023 Pain in right toe(s) (ICD-10 - M79.674) 11/21/2023 Pain in left toe(s) (ICD-10 - M79.675) Plan Of Treatment Medication Medication Name Sig Start Date Stop Date Notes Voltaren 1 % as directed External ly apply bid to toes; Duration: 30 days Extra Depth Diabetic Shoes with 3 Pair Custom heat-molded multi-density innersoles for 1 year Dx: Next Appt Details Follow Up: 1 Year, Reason: Provider Name:Dru Centeno , 12/09/2024 09:00:00 AM, [address] [facility], [address], [place], [address], Procedure Notes * Category Sub-Category Detail Notes Keratoma Treatment Parring or Cutting o f Benign Hyperkeratotic Lesion(s) 35348 ( >4 Lesions) - The Benign hyperkeratotic lesions, as described above were pared, and/or cut utilizing a sterile #15 blade, tissue nippers, and/or dremel Debride Nails 1-5 Procedure: Nail debrideme nt performed extensively to reduce/remove overall nail length and girth, subungual debris, and necrotic tissue, by manual and electrical means by use of a nail nipper and/or dremel, to more viable healthy nail plate or bed tissue 1-5. Silver nitrate used for any petechial bleeding as necessary. Patient chooses, no pharmaceutical tx (96829) Progress Notes * Lb VILLAGOMEZ:1955 (69 yo M)Acc No.[id number]:11/21/2023 Progress Note Patient: Lb MURPHY Provider: Jessica Florian DPM :1955 A ge:68 Y S ex:Male Date:11/21/2023 Address:[address] [place], [place] [address] Pcp:Edwin Saldaña MD Subjective: * Chief Complaints: * 1 . Painful thick toenails which are aggrevated by shoes and causes difficulty standing/walking. * HPI: A t Risk footcare: Pt States Last PCP Visit: D ate 0 08/15/2022 F oot Pain: Nature: a danny, stiffness. Location B /L, Top, Bottom, Midfoot, Forefoot and ankle.? Duration: s everal months. Onset/Cause: w earing crocs this summer. Course: i ntermittent. Aggrevated: s tanding, walking, barefoot walking, exercise.? Treatments: c hange in shoes, innersoles--pedag inserts have helped. Quality/Severity m oderate. T oe pain: Nature: a danny, tenderness, burning. Location: 5 th toe, Left foot. Duration: s everal years. * ROS: G eneral/Constitutional: Nausea d enies, denies. V omiting d enies, denies.?Hunger Thirst d enies, denies. L oss appetite d enies, denies. C hills d enies, denies. F atigue d enies, denies. F ever d enies, denies. N ight Sweats denies, denies. U nexplained weight loss d enies, denies. U nexplained weight gain?denies. O phthalmologic: Blurred vision d enies. R ed eye d enies. ? H EENTM: Dentures d enies, denies. D izziness d enies, denies. G lasses/contacts d enies, denies. R etinopathy d enies, denies. B lurred/double vision d enies, denies. T MJ d enies, denies. D ischarge/drainage d enies, denies. I mplants d enies, denies. S ore throat d enies. D ental implants d enies. H mojgan of hearing d enies, denies. D ifficulty chewing/swallowing/speaking d enies, denies. N ose bleeds d enies, denies. S ore mouth d enies, denies. S wollen glands d enies. R espiratory: On Oxygen d enies, denies. P neumonia/pleurisy d enies, denies. B ronchitis d enies, denies. E mphysema d enies, denies. C oughing?denies, denies. C ough blood d enies, denies. S hortness of breath d enies, denies. W heezing d enies, denies. C ardiovascular: Pacemaker d enies, denies. M CORN DETASSELER d enies, denies.?WPW d enies, denies. C HF d enies, denies. H eart attack d enies, denies.?Septal defect d enies, denies. R apid beat d enies, denies. C hest pain d enies, denies. A trial Fib. d enies, denies. M urmur/Palpitations d enies, denies. G astrointestinal: Hemorrhoids d enies, denies. S tomach/Abdominal pain?denies, denies. D ark blood stool d enies, denies. I rritable bowel d enies, denies. C onstipation d enies, denies. D iarrhea d enies, denies. V omiting d enies. H ematology: Swelling d enies, denies. C lots d enies. V aricose Veins d enies. B ruising d enies, denies. B leeding problem d enies, denies. G enitourinary: Blood urine d enies, denies. F requent/Painfu/urination/bladder control d enies, denies. K idney stones d enies, denies. I nfection (UTI)?denies, denies. N ephropathy d enies, denies. s ex trans dis (STD) d enies. P rostate d enies. M usculoskeletal: Hammertoes d enies, denies. B unions d enies, denies. S coliosis/kyphosis d enies. B ack Pain d enies. M uscle Cramps/ Resting d enies. M uscle cramps / walking d enies, denies. G eneralized aches and pains d enies, denies. W eakness d enies, denies. I nteg.: Murray d enies, denies. S cars d enies, denies. C orns/calluses d enies, denies. I ngrown nails d enies, denies. P ainful nails d enies, denies. O pen Sores d enies. R ashes d enies, denies. N eurologic: Difficulty sleeping d enies, denies. B ipolar d enies. B rain disorder d enies, denies. N umbness d enies. B alance trouble d enies, denies. C onfusion d enies, denies. F ainting/blackouts d enies, denies. H eadache d enies. T ingling d enies. T remors d enies, denies. * Medical History: Objective: * Vitals: * Examination: O phthalmology Referral: DIABETES EYE EXAM D iabetic Retinopathy Screening: N o F indings of Diabetic Eye Exam: n o retinopathy N eurological: SENSORY: N eurological exam demonstrates, reduced vibration sensation, B/L, at Forefoot, 5.07 monofilament test performed at plantar aspects of 5 varied sites per foot shows sensation, reduced , B/L, Neurological exam demonstrates pop t4 pipj. TINEL'S COMPRESSION: N egative tarsal tunnel, chuck pedis, and medial calcaneal nerves B/L. BABINSKI REFLEX: a bsent. V ascular: DP PULSES (B): 2/4, B/L. PT PULSES (B): 2/4, B/L. CAPILLARY FILL TIME: 3 secs. per digit, B/L. TROPHIC CONDITION-TEXTURE/ELASTICITY/TURGOR/HAIR GROWTH (B):?normal, B/L. TEMPERTURE GRADIENT (C): w arm to cool, proximal to distal, B/L. PIGMENTATION: n ormal, B/L. EDEMA (C): n o edema. TELANGECTASIA: a bsent. VARICOSITIES: a bsent. D ermatologic: SKIN FINDINGS: S kin exam reveals Keratotic lesion(s) located at, SUB MTH (s), 1, 3, 5, B/L , Heel(s), B/L . G eneral Examination: GENERAL APPEARANCE: p leasant, alert, well nourished, well developed, well hydrated, with good attention to hygene/body habitus, and in no acute distress. ORIENTED: p erson,place, and time. N euroma Pain: PALPATION: N o interspace pain noted on palpation. ? O rthopedic: MUSCLE STRENGTH: 5 /5 all groups in a symmetrical fashion , B/L. GAIT ABNORMALITY: p ronated, abducted, B/L. DIGITAL DEFORMITIES: Digital contracture, PIPJ, 2-5 B/L, incompl-reducable with WB, or to push-up test, no over, nor underlapping. N ails: NAILS are: Elongated, overgrown, dystrophic, lytic, greater than 3mm thick, discolored and friable with crumbly malodorous subungual debris, with dull to no pain on palpation due to neuropathy, T5, proximal clearing of nail __90__ %. Assessment: * Assessment: 1. T ype 2 diabetes mellitus with diabetic polyneuropathy - E11.42 (Primary) 2 . O ther hammer toe(s) (acquired), left foot - M20.42 3 . O ther hammer toe(s) (acquired), right foot - M20.41 4 . P ain in left foot - M79.672 5. P ain in right foot - M79.671 6 . M etatarsalgia, left foot - M77.42? 7. M etatarsalgia, right foot - M77.41 8 . T inea unguium - B35.1 9 . P ain in right toe(s) - M79.674 1 0. P ain in left toe(s) - M79.675 Plan: * Treatment: 2. P ain in right foot Start Voltaren Gel, 1 %, as directed, Externally, apply bid to toes, 30 days, 90, Refills 6. ? * Procedures: D ebride Nails 1-5: Procedure: N ail debridement performed extensively to reduce/remove overall nail length and girth, subungual debris, and necrotic tissue, by manual and electrical means by use of a nail nipper and/or dremel, to more viable healthy nail plate or bed tissue 1-5. Silver nitrate used for any petechial bleeding as necessary. Patient chooses, no pharmaceutical tx (54930). K eratoma Treatment: Parring or Cutting of Benign Hyperkeratotic Lesion(s) 1 1057 ( >4 Lesions) - The Benign hyperkeratotic lesions, as described above were pared, and/or cut utilizing a sterile #15 blade, tissue nippers, and/or dremel. * Procedure Codes: 1 1720 DEBRIDE NAIL, 1-5, Modifiers: XS , 17845 TRIM SKIN LESIONS, OVER 4, Modifiers: XS * Follow Up: 1 Year * Images: * The named appointment provid er may or may not be the originator of this progress note, and it is not deemed complete until electronically signed by the appointment provider. Sign off status: Pending * Provider: Jessica Florian DPM Date: 0 11/21/2023 Generated for Rio akhtar/Juli/Bonnie on: 0 11/13/2024 11:38 AM EDT History and Physical Notes * HPI (History of Present Illness) Category Sub-Category Detail Notes Category Not es Toe pain Nature: aching, tenderness, burning Location: 5th toe, Left foot Duration: several years At Risk footcare Pt States Last PCP Visit: Date: 3 Foot Pain Aggrevated: standing, walkin g, barefoot walking, exercise Onset/Cause: wearing crocs this s ummer Course: intermittent Duration: several months Nature: aching, stiffness Treatments: change in shoes, innersoles --pedag inserts have helped Quality/Severity moderate Location B/L, Top, Bottom, Mi dfoot, Forefoot and ankle Examination Category Sub-Category Detail Notes Category Not es Neuroma Pain PALPATION: No interspace pain noted on palpation Neurological SENSORY: Neurological exa m demonstrates, reduced vibration sensation, B/L, at Forefoot, 5.07 monofilament test performed at plantar aspects of 5 varied sites per foot shows sensation, reduced , B/L, Neurological exam demonstrates pop t4 pipj BABINSKI REFLEX: absent TINEL'S COMPRESSION: Negative tarsal amina drake, chuck pedis, and medial calcaneal nerves B/L Dermatologic SKIN FINDINGS: Skin exam reveal s Keratotic lesion(s) located at, SUB MTH (s), 1, 3, 5, B/L , Heel(s), B/L Orthopedic GAIT ABNORMALITY: pronated, abducted, B/L DIGITAL DEFORMITIES: Digital contracture , PIPJ, 2-5 B/L, incompl-reducable with WB, or to push-up test, no over, nor underlapping MUSCLE STRENGTH: 5/5 all groups in a symmetrical fashion , B/L General Examination GENERAL APPEARANCE: pleasant , alert, well nourished, well developed, well hydrated, with good attention to hygene/body habitus, and in no acute distress ORIENTED: person,place, and ti nj Ophthalmology Referral DIABETES EYE EXAM Diabetic Retinopa thy Screening:: No Findings of Diabetic Eye Exam:: no retin opathy Vascular DP PULSES (B): 2/4, B/L PT PULSES (B): 2/4, B/L CAPILLARY FILL TIME: 3 secs. per digit, B/L TEMPERTURE GRADIENT (C): warm to cool, p roximal to distal, B/L TROPHIC CONDITION-TEXTURE/ELASTICITY/TURGOR/HAIR GROWTH (B): normal, B/L EDEMA (C): no edema TELANGECTASIA: absent VARICOSITIES: absent PIGMENTATION: normal, B/L Nails NAILS are: Elongated, overg rown, dystrophic, lytic, greater than 3mm thick, discolored and friable with crumbly malodorous subungual debris, with dull to no pain on palpation due to neuropathy, T5, proximal clearing of nail __90__ %
--- NOTE | 2024-11-13 10:47 | AM.OFFVISMDC ---
Intake Vital Signs 11/13/24 10:49 Height 5 ft 5.35 in Weight 188 lb 8 oz BMI 31.0 BP 120/80 Blood Pressure Location Lt brachial Position Sitting Pulse 66 Pulse Source Pulse Oximeter Temp 97.3 F Temp Source Temporal Artery Scan Pulse Oximetry (%) 96 Oxygen Delivery Method Room Air Intake Visit Reasons: AWV Intake Note: Patient is here for an Annual Wellness Visit. Middleware Developer Required: No [employer] Sprayer: M[employer] Sprayer offered & declined Accompanied by: Self / Same As Patient Allergies shell fish Allergy (Mild, Uncoded 11/13/24 10:59) sweating and an itchy throat. Medication List - Last Reconciled 11/13/24 by Lucien Luevano PA-C albuterol sulfate 90 mcg/actuation 2 puffs inhalation Q8H 30 days atorvastatin 10 mg PO DAILY 90 days escitalopram oxalate 10 mg PO DAILY losartan 100 mg PO DAILY 90 days metformin ER 500 mg PO DAILY 90 days metoprolol succinate ER 25 mg PO DAILY 90 days omeprazole 20 mg PO DAILY PRN 90 days rivaroxaban (Xarelto) 20 mg PO DAILY HPI AWV HPI Details Patient is a 69-year-old male here today for annual wellness visit Patient has a past medical history significant for hypertension, hyperlipidemia, GERD, type 2 diabetes and AFib, COPD Today we discussed his end of life planning (MOLST completed) and comprehensive care plan that was scanned into patient's documents.. Colon cancer screening- Has polyps - gets Colon done Dr Nelson Vaccines: Up-to-date with pneumonia, RSV, shingles and COVID vaccines HPI Comments History of Present Illness Details reviewed past medical history- yes reviewed surgical / hospitalization history- yes reviewed current medications- yes reviewed family history- yes home safety throw rugs? grab bars? raised toilet seat? working smoke detectors? activities of daily living difficulty bathing or showering? difficulty dressing? difficulty using the toilet? difficulty getting in and out of bed? difficulty walking? receives help from other person's with any of the above tasks? instrumental activities of daily living uses telephone - gets to place out of walking distance- go shopping for groceries- repairs own meals- does own minor home maintenance- does own laundry- does own housework- manages own money- currently takes medication- end of life planning discussed advanced directives- yes advanced directives on file? discussed wishes expressed in advanced directives. fall risk have you had any falls with injuries in the past year? have you had 2 or more falls in the past year? fall risk assessment: COUNT INCLUDES [facility] Surgical History No pertinent past surgical history Social History Alcohol intake: former Patient Tobacco Use Status: Former Tobacco user Current occupational status: retired Current occupation: Police office [employer] Questionnaire Medicare Wellness Checkup What [age] your [age]?: [age] What gender do you identify with?: male During the past 4 weeks, how much have you been bothered by emotional problems such as feeling anxious, depressed, irritable, sad or downhearted, and blue?: not at all During the past 4 weeks, has your physical & emotional health limited your social activities with family, friends, neighbors, or groups?: not at all During the past 4 weeks, how much bodily pain have you generally had?: very mild pain During the past 4 weeks, was someone available to help you if you needed & wanted help?: yes, quite a bit During the past 4 weeks, what was the hardest physical activity you could do for at least 2 minutes?: heavy Can you get to places out of walking distance without help? (For eg., can you travel alone on buses, taxis or drive your car?): Yes Can you go shopping for groceries or clothes without someone's help?: Yes Can you prepare your own meals?: Yes Can you do your housework without help?: Yes Because of any health problems, do you need the help of another person with your personal care needs such as eating, bathing, dressing or getting around the house?: No Can you handle your own money without help?: Yes During the past 4 weeks, how would you rate your health in general?: good During the past 4 weeks how have things been going for you?: very well; could hardly better Are you having difficulties driving your car?: no Do you always fasten your seat belt when you are in a car?: yes, sometimes During past 4 weeks, have you been bothered by the following: never: Sexual problems? and Problems using the telephone?, seldom: Falling or dizzy when standing up and sometimes: Trouble eating well?, Teeth or denture problems? and Tiredness or fatigue? Have you fallen 2 or more times in the past year?: Yes Are you afraid of falling?: No Are you a smoker?: no During the past 4 weeks, how many drinks of wine, beer, or other alcoholic beverages did you have?: no alcohol at all Do you exercise for about 20 minutes 3 or more times a week?: yes, some of the time Have you been given information to help with the following?: yes: Hazards in your house that might hurt you? and no: Keeping track of your medications? How often do you have trouble taking medicines the way you have been told to take them?: I always take medicine as prescribed How confident are you that you can control & manage most of your health problems?: somewhat confident What is your race?: White Mini Mental State Exam (MMSE) Orientation What is the (year) (season) (date) (day) (month)?: year Where are we (state) (county) (town or city) (hospital) (floor)?: town or city Attention & Calculation (CHOOSE ONE) Ask pt to begin with 100 & count backward by 7. Stop after 5 repeats. If pt cannot ask them to spell the word WORLD backward.: 93 Spell WORLD backwards (DLROW): 5 letters Score Score: 8 Activity of Daily Living Bathing - sponge bath, tub bath or shower: receives no assistance (gets in/out by self, if usual bathing means Dressing - getting clothes from closets & drawers, including inner/outer garments & fasteners.: gets clothes & gets completely dressed without help Toileting - going to the 'toilet room' for urine/bowel elimination & cleaning self/arranging clothes: goes to toilet room, cleans self, arranges clothes without help Transfer: moves in & out of bed and chair without help (may use support object) Continence: controls urination/bowel movements completely by self Feeding: feeds self without help Total Score: 0 Information obtained from: patient Using telephone: independent Traveling: independent Shopping: independent Preparing meals: independent Housework: independent Taking medicine: independent Managing money: independent PHQ-9 Over the last 2 weeks, how often have you been bothered by any of the following problems? 1. Little interest or pleasure in doing things: several days 2. Feeling down, depressed, or hopeless: not at all 3. Trouble falling or staying asleep, or sleeping too much: not at all 4. Feeling tired or having little energy: several days 5. Poor appetite or overeating: several days 6. Feeling bad about yourself - or that you are a failure or have let yourself or your family down: not at all 7. Trouble concentrating on things, such as reading the newspaper or watching television: not at all 8. Moving or speaking so slowly that other people could have noticed. Or the opposite - being so fidgety or restless that you have been moving around a lot more than usual: not at all 9. Thoughts that you would be better off or of hurting yourself in some way: not at all Total score: 3 Depression Screening Interpretation: Positive Depression Screening Follow-up: Existing condition and Declines treatment Depression Screening Done: Yes 53258 - PHQ-9 Billing: Yes Source: Developed by Drs. Jeremiah Stewart, Debra Jackson, Shahid Mcallister and colleagues, with an educational alfredo from [employer]. Thrive Questionnaire Date Thrive assessed: 11/13/24 I am a: Patient What is your living situation today?: I have a steady place to live Within the past 12 months, did the food you bought not last and you didn't have the money to get more?: Never true Within the past 12 months, did you worry whether your food would run out before you got money to buy more?: Never true Do you have trouble paying for medicines?: No Do you have trouble getting transportation to medical appointments?: No Do you have trouble paying your heating and electricity bill?: No Do you have trouble taking care of your child, family member or friend?: No Do you have trouble with day-to-day activities such as bathing, preparing meals, shopping, managing finances, etc.?: No Are you currently unemployed and looking for a job?: No Are you interested in more education?: No Please select the resources that you would like help with: None Currently or been in a relationship where the following occur: No concerns reported THRIVE Score: 0 JOSE-7 AMB Questionnaire JOSE-7 Date JOSE - 7 assessed: 08/07/24 Source: Developed by Drs. Jeremiah Stewart, Debra Jackson, Shahid Mcallister and colleagues, with an educational alfredo from [employer]. Physical Exam Vital Signs: Last Vital Signs Temp 97.3 F 11/13/24 10:49 Pulse 66 11/13/24 10:49 BP 120/80 11/13/24 10:49 Pulse Ox 96 11/13/24 10:49 Oxygen Delivery Method Room Air 11/13/24 10:49 BMI result Body Mass Index 31.0 HEENT Other: hearing screening whisper test- failed on right side Eyes Other: vision screening- 20 20 OS OD OU Other: urinary incontinence? no Neuro Other: balance Romberg- normal tandem walk test- able walk-in turned test- able rise from sit to stand- within 2 seconds Results AMB Hemoglobin A1c AMB Hemoglobin A1c 7.0 % Last Edit by MAINOR Sullivan on 11/13/24 11:08 Results Reviewed Results Reviewed: Laboratory Last Values Hgb A1c (Clinic) 7.0 % (4.0-6.0) H 11/13/24 10:47 Assessment & Plan Assessment & Plan (1) Medicare annual wellness visit, initial: Code(s): Z00.00 - Encounter for general adult medical examination without abnormal findings Plan: As per HPI Orders: Orders AMB Hemoglobin A1c 11/13/24 E11.65 - Type 2 diabetes mellitus with hyperglycemia Lipid Panel 11/13/24 E11.65 - Type 2 diabetes mellitus with hyperglycemia Quality Reporting (2019) Depression/Bipolar (159/160/161/177) PHQ-9: Total score: 3 Coding Level of Care Code Medicare First (G0438) Diagnoses Medicare annual wellness visit, initial Z00.00 CPT Codes Advance Care Planning - Advance Care Planning discussion: On file, no changes ([id number]) Advance Care Planning - Time spent: 1-15 minutes, on File ([id number]) Additional Codes PHQ-9 - 27239 - PHQ-9 Billing: Yes ([id number]) Advance Care Planning Advance Care Planning discussion: On file, no changes Date of discussion: 11/13/24 Forms completed: MOLST Time spent: 1-15 minutes, on File Actual minutes spent: 5
[2024-11-13 10:49] VITALS: BP 120/80; PULSE 66; TEMP 36.3; O2SAT 96; BMI 31.0
--- OUTSIDE RECORDS SUMMARY | 2024-11-13 11:39 | XMS_ITS | Clinical Summary ---
Author Organization [facility] Address [address] [place] [address] Care Team Providers Care Continuous Wave Operator Name Role Phone Edwin Saldaña MD Primary [...] 2007 Zoster Vaccines (1 of 2) 2007 Abdominal Aortic Aneurysm (A AA) Screen 03/26/2022 Cholesterol Screening (Lipid Panel) 03/26/2022 Colorectal Cancer Screening: Colonoscopy 03/26/2022 Diabetes: Annual Urine Albumin-Creatinine Ratio (uACR) 03/26/2022 Diabetes: Blood Sugar Contro l Test (HGBA1C) 03/26/2022 Hepatitis C Screening 03/26/2022 Hypertension/CHF/CAD Annual BMP Blood Test 03/26/2022 Medicare Annual Wellness Visit 03/26/2022 Social Influencers of Health Screening 03/26/2022 Falls Risk Assessment 2022 COVID-19 Vaccine (1 - 2023-2 5 season) 2023 Depression Screening 04/17/2024 Influenza Vaccine (#1) 2024 RSV Immunization Adult Patie nts (1 - 1-dose 75+ series) 2032 HIB Vaccines Aged Out No longer eligi [...] complete this topic RSV Immunization Patients Un mahnaz 20 months Aged Out No longer eligible b ased on patient's age to complete this topic Varicella Vaccines Aged Out No longer eligible based on patient's age to complete this topic Care Teams Continuous Wave Operator Relationship Specialty Start Date End Date Edwin Saldaña MD [address] [place] [address] [address] [place], [place] PCP - General Internal Medicine 06/18/20
--- OUTSIDE RECORDS SUMMARY | 2024-11-13 11:39 | XMS_ITS ---
Author Name [facility] Organization Unknown Encounters Encounter Type Encounter Reason Primary Diagnosis Location Date Ambulatory [facility] ical Group 02/13/2024 Care Team Organization Name Specialty Phone Email Start Date End Da te [facility] 08/10/2024 [facility] Primary [facility] 01/25/2024 [facility] Termed, PROVIDER Primary Care 10/20/2022 [facility] Primary Care 02/22/2022
--- OUTSIDE RECORDS SUMMARY | 2024-11-13 11:39 | XMS_ITS | Clinical Summary ---
Author Organization [facility] Address [address] [place] [address] Care Team Providers Care Manager Cash Name Role Phone Unknown, Provider DO Primary Care Provider Unava ilable Allergies No known active allergies Medications losartan (COZAAR) 100 mg tablet Take 100 mg by mouth daily. Active metaxalone (SKELAXIN) 800 mg tablet Take 800 mg by mouth 3 times daily. Active Active Problems No known active problems Social History Tobacco Use Types Packs/Day Years Used Date Smoking Tobacco: Never Sex and Gender Information Value Date Recorded Sex Assigned at Not on file Legal Sex Male 16:10 EST Gender Identity Not on file Sexual Orientation Not on file Obstetrics History Last Filed Vital Signs Vital Sign Reading Time Taken Comments Blood Pressure - - Pulse - - Temperature - - Respiratory Rate - - Oxygen Saturation - - Inhaled Oxygen Concentration - - Weight 99.8 kg (220 lb) 05/01/2016 1617 EST Height 172.7 cm (5' 8 ) 05/01/2016 1617 EST Body Mass Index 33.45 05/01/2016 1617 EST Plan of Treatment Health Maintenance Due Date Last Done Comments Hepatitis C Screen 1955 Fall Risk Screening 2022 COVID-19 Vaccine (2023- season) 2023 RSV Immunization ( o r 60+ Years) (1 - 1-dose 75+ series) 2032 Care Teams Manager Cash Relationship Specialty Start Date End Date Unknown, Provider, DO PCP - General 05/01/16
== END 2024-11-13 11:26 | disposition home or self-care (01) ==
LOC: HO.HMCH 10:39
PROVIDERS: Visit Provider Physician Assistant
DX: E11.65 Type 2 diabetes mellitus with hyperglycemia (principal)

== ENCOUNTER → 2024-11-13 10:39 | Outpatient (BNVA) | payer MEDICARE, SELFPAY | PROVIDERS: Visit Provider Physician Assistant | DX: Z00.00 Encounter for general adult medical examination without abnormal findings (principal); E11.65 Type 2 diabetes mellitus with hyperglycemia | CPT/HCPCS: 83036; 96127 ==

== ENCOUNTER 2025-02-13 10:37 | Outpatient (AMB) | payer MEDICARE, SELFPAY ==
--- OUTSIDE RECORDS SUMMARY | 2023-10-25 06:00 | XMS_ITS ---
Author Organization [facility] [place] Address [address] [facility] [address] [place] [address] Care Team Providers Care Chief Meter Reader Name Role Phone Migration, Provider Unavailable Unavailable REASON FOR VISIT Follow-up Appt Encounters Encounter Location Date Provider Diagnosis [address] [address] 10/25/2023 Provider Migration Plan Of Treatment No Information Progress Notes * ZEYAD VILLAGOMEZ MDOB:1955 (69 yo M)Acc No.[id number]:10/25/2023 Progress Notes Patient: N ZEYAD CAMPOS Provider: Shahana jacobsen Migration :1955 A ge:68 Y S ex:Male Date:10/25/2023 Address:[address] [place] [address] Subjective: * Chief Complaints: * F ollow-up Appt * Ocular Surgical History: Objective: Vision Examination: * Electronic signature of Prov ider Migration on 02/13/2025 at 01:04 PM EDT Sign off status: Pending * Provider: Shahana jacobsen Migration Date: 0 10/25/2023 Generated for Rio akhtar/Juli/eTransmitting on: 1 01:04 PM EDT
--- OUTSIDE RECORDS SUMMARY | 2023-11-01 06:00 | XMS_ITS ---
Author Organization [facility] [place] Address [address] [facility] [address] [place] [address] Care Team Providers Care Gift Basket Packer Name Role Phone Migration, Provider Unavailable Unavailable REASON FOR VISIT Follow-up Appt Encounters Encounter Location Date Provider Diagnosis [address] [address] 11/01/2023 Provider Migration Plan Of Treatment No Information Progress Notes * ZEYAD VILLAGOMEZ MDOB:1955 (69 yo M)Acc No.[id number]:11/01/2023 Progress Notes Patient: N ZEYAD CAMPOS Provider: Shahana jacobsen Migration :1955 A ge:68 Y S ex:Male Date:11/01/2023 Address:[address] [place] [address] Subjective: * Chief Complaints: * F ollow-up Appt * Ocular Surgical History: Objective: Vision Examination: * Electronic signature of Prov ider Migration on 02/13/2025 at 01:06 PM EDT Sign off status: Pending * Provider: Shahana jacobsen Migration Date: 0 11/01/2023 Generated for Rio akhtar/Juli/eTransmitting on: 1 01:06 PM EDT
--- OUTSIDE RECORDS SUMMARY | 2023-11-21 06:00 | XMS_ITS ---
Author Organization [facility] Address [address] [place] [address] Care Team Providers Care Corporate Treasury Analyst Name Role Phone Edwin Saldaña MD Primary Care Provider Unav ailable Taryn Dru Unavailable [phone] Oliverio Mitchell Unavailable [phone] REASON FOR VISIT Painful thick toenails which [...] Active Encounters Encounter Location Date Provider Diagnosis [facility] [address] [address] 11/21/2023 Oliverio Mitchell Type 2 diabetes mellitus with diabetic polyneuropathy [...] Appt Details Follow Up: 1 Year, Reason: Procedure Notes * Category Sub-Category Detail Notes Keratoma Treatment Parring or Cutting o f Benign Hyperkeratotic Lesion(s) 89052 ( >4 Lesions) - The Benign hyperkeratotic [...] as necessary. Patient chooses, no pharmaceutical tx (39690) Progress Notes * Lb VILLAGOMEZ MDOB:1955 (69 yo M)Acc No.[id number]:11/21/2023 Progress Note Patient: N Lb CAMPOS Provider: Jessica Florian DPM :1955 A ge:68 Y S ex:Male Date:11/21/2023 Address:[address] [place] [address], [place], [place] Pcp:Edwin Saldaña MD Subjective: * Chief Complaints: [...] C ardiovascular: Pacemaker d enies, denies. M PARKING INSPECTOR d enies, denies.?WPW d enies, denies. C [...] as necessary. Patient chooses, no pharmaceutical tx (88225). K eratoma Treatment: Parring or Cutting of Benign Hyperkeratotic Lesion(s) 1 1057 ( >4 Lesions) - The Benign hyperkeratotic lesions, as described above were pared, and/or cut utilizing a sterile #15 blade, tissue nippers, and/or dremel. * Procedure Codes: 1 1720 DEBRIDE NAIL, 1-5, Modifiers: XS , 55345 TRIM SKIN LESIONS, OVER 4, Modifiers: XS * Follow Up: 1 Year * Images: * The named appointment provid er may or may not be the originator of this progress note, and it is not deemed complete until electronically signed by the appointment provider. Sign off status: Pending * Provider: Jessica Florian DPM Date: 0 11/21/2023 Generated for Rio akhtar/Juli/Bonnie on: 01:05 PM EDT History and Physical Notes * HPI [...] no acute distress ORIENTED: person,place, and ti me Ophthalmology Referral DIABETES EYE EXAM Diabetic Retinopa [...]
--- OUTSIDE RECORDS SUMMARY | 2023-12-12 08:15 | XMS_ITS ---
Author Organization [facility] Address [address] [place] [address] Care Team Providers Care Hvac Specialist Name Role Phone Edwin Saldaña MD Primary Care Provider Unav ailable Dru Centeno Unavailable [phone] Oliverio Mitchell Unavailable [phone] Encounters Encounter Location Date Provider Diagnosis [facility] [address] [address] 12/12/2023 Oliverio Mitchell Plan Of Treatment No Information Progress Notes * Lb VILLAGOMEZ MDOB:1955 (69 yo M)Acc No.[id number]:12/12/2023 Progress Note Patient: Thomas CAMPOS Lb Santoyo Provider: Jessica Florian DPM :1955 A ge:68 Y S ex:Male Date:12/12/2023 Address:[address] [place], [place] [address] Pcp:Edwin Saldaña MD Subjective: * Chief Complaints: * * Medical History: Objective: * Vitals: Assessment: Plan: * Treatment: * Images: * The named appointment provid er may or may not be the originator of this progress note, and it is not deemed complete until electronically signed by the appointment provider. Sign off status: Pending * Provider: Jessica Florian DPM Date: 0 12/12/2023 Generated for Rio akhtar/Juli/eTransmitting on: 01:05 PM EDT
--- OUTSIDE RECORDS SUMMARY | 2024-01-25 06:00 | XMS_ITS ---
Author Organization [facility] [place] Address [address] [facility] [address] [place] [address] Care Team Providers Care Thermit Welding Machine Operator Name Role Phone Migration, Provider Unavailable Unavailable REASON FOR VISIT CPX Encounters Encounter Location Date Provider Diagnosis [address] [place] [address] 01/25/2024 Provider Migration Plan Of Treatment No Information Progress Notes * ZEYAD VILLAGOMEZ MDOB:1955 (69 yo M)Acc No.[id number]:01/25/2024 Progress Notes Patient: N ZEYAD CAMPOS Provider: Shahana Kimble :1955 A ge:68 Y S ex:Male Date:01/25/2024 Address:[address] [place], [place] [id number] Subjective: * Chief Complaints: * C PX * Ocular Surgical History: Objective: Vision Examination: * Electronic signature of Prov ider Migration on 02/13/2025 at 01:04 PM EDT Sign off status: Pending * Provider: Shahana jacobsen Migration Date: Generated for Rio akhtar/Juli/eTransmitting on: 01:04 PM EDT
--- OUTSIDE RECORDS SUMMARY | 2024-05-02 06:00 | XMS_ITS ---
Author Organization [facility] [place] Address [address] [facility] [address] [place] [address] Care Team Providers Care Prepper Name Role Phone Migration, Provider Unavailable Unavailable REASON FOR VISIT Follow-up Appt Encounters Encounter Location Date Provider Diagnosis [address] [address] 05/02/2024 Provider Migration Plan Of Treatment No Information Progress Notes * ZEYAD VILLAGOMEZ MDOB:1955 (69 yo M)Acc No.[id number]:05/02/2024 Progress Notes Patient: N ZEYAD CAMPOS Provider: Shahana jacobsen Migration :1955 A ge:69 Y S ex:Male Date:05/02/2024 Address:[address] [place] [address] Subjective: * Chief Complaints: * F ollow-up Appt * Ocular Surgical History: Objective: Vision Examination: * Electronic signature of Prov ider Migration on 02/13/2025 at 01:06 PM EDT Sign off status: Pending * Provider: Shahana jacobsen Migration Date: 0 05/02/2024 Generated for Rio akhtar/Juli/eTransmitting on: 1 01:06 PM EDT
--- OUTSIDE RECORDS SUMMARY | 2024-05-22 06:00 | XMS_ITS ---
Author Organization [facility] [place] Address [address] [facility] [address] [place] [address] Care Team Providers Care Wheel Of Fortune Dealer Name Role Phone Giuseppe Gary Unavailable [phone] REASON FOR VISIT Follow-up Appt Encounters Encounter Location Date Provider Diagnosis [address] [address] 05/22/2024 Giuseppe Gary Plan Of Treatment No Information Progress Notes * ZEYAD VILLAGOMEZ MDOB:1955 (69 yo M)Acc No.[id number]:05/22/2024 Progress Notes Patient: Thomas MUÑOZCOLE ZEYAD Santoyo Provider: Rosario FRANCO :1955 A ge:69 Y S ex:Male Date:05/22/2024 Address:[address] [place], [place] [id number] Subjective: * Chief Complaints: * F ollow-up Appt * Ocular Surgical History: Objective: Vision Examination: * Electronic signature of Joe Gary PA-C on 02/13/2025 at 01:04 PM EDT Sign off status: Pending * Provider: Rosario FRANCO Date: 0 05/22/2024 Generated for Deysii ng/Juli/eTransmitting on: 1 01:04 PM EDT
--- OUTSIDE RECORDS SUMMARY | 2024-05-22 06:00 | XMS_ITS ---
Author Organization [facility] [place] Address [address] [facility] [address] [place] [address] Care Team Providers Care Styrene Dehydration Reactor Operator Name Role Phone Migration, Provider Unavailable Unavailable REASON FOR VISIT Follow-up Appt Encounters Encounter Location Date Provider Diagnosis [address] [address] 05/22/2024 Provider Migration Plan Of Treatment No Information Progress Notes * ZEYAD VILLAGOMEZ MDOB:1955 (69 yo M)Acc No.[id number]:05/22/2024 Progress Notes Patient: N ZEYAD CAMPOS Provider: Shahana jacobsen Migration :1955 A ge:69 Y S ex:Male Date:05/22/2024 Address:[address] [place] [address] Subjective: * Chief Complaints: * F ollow-up Appt * Ocular Surgical History: Objective: Vision Examination: * Electronic signature of Prov ider Migration on 02/13/2025 at 01:05 PM EDT Sign off status: Pending * Provider: Shahana jacobsen Migration Date: 0 05/22/2024 Generated for Rio akhtar/Juli/eTransmitting on: 1 01:05 PM EDT
--- OUTSIDE RECORDS SUMMARY | 2024-06-14 05:30 | XMS_ITS ---
Author Organization [facility] [place] Address [address] [facility] [address] [place] [address] Care Team Providers Care Lease Buyer Name Role Phone Giuseppe Gary Unavailable [phone] REASON FOR VISIT Follow-up Appt Encounters Encounter Location Date Provider Diagnosis [address] [address] 06/14/2024 Giuseppe Gary Plan Of Treatment No Information Progress Notes * ZEYAD VILLAGOMEZ MDOB:1955 (69 yo M)Acc No.[id number]:06/14/2024 Progress Notes Patient: Thomas MUÑOZCOLE ZEYAD Santoyo Provider: Rosario FRANCO :1955 A ge:69 Y S ex:Male Date:06/14/2024 Address:[address] [place], [place] [address] Subjective: * Chief Complaints: * F ollow-up Appt * Ocular Surgical History: Objective: Vision Examination: * Electronic signature of Joe Gary PA-C on 02/13/2025 at 01:05 PM EDT Sign off status: Pending * Provider: Rosario FRANCO Date: 0 06/14/2024 Generated for Deysii ng/Juli/eTransmitting on: 1 01:05 PM EDT
--- OUTSIDE RECORDS SUMMARY | 2024-07-08 05:15 | XMS_ITS ---
Author Organization [facility] [place] Address [address] [place] [address] Care Team Providers Care Cv/Cvn Cv Tsc System Operator Name Role Phone Migration, Provider Unavailable Unavailable REASON FOR VISIT Follow-up Appt Encounters Encounter Location Date Provider Diagnosis [address] [address] 07/08/2024 Provider Migration Plan Of Treatment No Information Progress Notes * ZEYAD VILLAGOMEZ MDOB:1955 (69 yo M)Acc No.[id number]:07/08/2024 Progress Notes Patient: N ZEYAD CAMPOS Provider: Shahana jacobsen Migration :1955 A ge:69 Y S ex:Male Date:07/08/2024 Address:[address] [place] [address] Subjective: * Chief Complaints: * F ollow-up Appt * Ocular Surgical History: Objective: Vision Examination: * Electronic signature of Prov ider Migration on 02/13/2025 at 01:06 PM EDT Sign off status: Pending * Provider: Shahana jacobsen Migration Date: 0 07/08/2024 Generated for Rio akhtar/Juli/eTransmitting on: 1 01:06 PM EDT
--- OUTSIDE RECORDS SUMMARY | 2024-07-08 05:15 | XMS_ITS ---
Author Organization [facility] [place] Address [address] [place] [address] Care Team Providers Care Photoflash Powder Mixer Name Role Phone Giuseppe Gary Unavailable [phone] REASON FOR VISIT Follow-up Appt Encounters Encounter Location Date Provider Diagnosis [address] [address] 07/08/2024 Giuseppe Gary Plan Of Treatment No Information Progress Notes * ZEYAD VILLAGOMEZ MDOB:1955 (69 yo M)Acc No.[id number]:07/08/2024 Progress Notes Patient: Thomas MUÑOZCOLE ZEYAD Santoyo Provider: Rosario FRANCO :1955 A ge:69 Y S ex:Male Date:07/08/2024 Address:[address] [place], [place] [id number] Subjective: * Chief Complaints: * F ollow-up Appt * Ocular Surgical History: Objective: Vision Examination: * Electronic signature of Joe Gary PA-C on 02/13/2025 at 01:06 PM EDT Sign off status: Pending * Provider: Rosario FRANCO Date: 0 07/08/2024 Generated for Deysii ng/Farenee/eTransmitting on: 1 01:06 PM EDT
--- OUTSIDE RECORDS SUMMARY | 2024-08-07 10:15 | XMS_ITS ---
Author Organization [facility] [place] Address [address] [place] [address] Care Team Providers Care Inside Sales Advertising Executive Name Role Phone Giuseppe Gary Unavailable [phone] REASON FOR VISIT Follow-up Appt Encounters Encounter Location Date Provider Diagnosis [address] [address] 08/07/2024 Giuseppe Gary Plan Of Treatment No Information Progress Notes * ZEYAD VILLAGOMEZ MDOB:1955 (69 yo M)Acc No.[id number]:08/07/2024 Progress Notes Patient: Thomas MUÑOZCOLE ZEYAD Santoyo Provider: Rosario FRANCO :1955 A ge:69 Y S ex:Male Date:08/07/2024 Address:[address] [place], [place] [id number] Subjective: * Chief Complaints: * F ollow-up Appt * Ocular Surgical History: Objective: Vision Examination: * Electronic signature of Joe Gary PA-C on 02/13/2025 at 01:05 PM EDT Sign off status: Pending * Provider: Rosario FRANCO Date: 0 08/07/2024 Generated for Rio ng/Juli/eTransmitting on: 1 01:05 PM EDT
--- OUTSIDE RECORDS SUMMARY | 2024-12-09 05:00 | XMS_ITS ---
Author Organization [facility] Address [address] [place] [address] Care Team Providers Care Hand Striper Name Role Phone Edwin Saldaña MD Primary Care Provider Unav ailable Dru Centeno Unavailable [phone] Encounters Encounter Location Date Provider Diagnosis [facility] [address] [address] 12/09/2024 Dru Centeno Plan Of Treatment No Information Progress Notes * Lb VILLAGOMEZ MDOB:1955 (69 yo M)Acc No.[id number]:12/09/2024 Progress Note Patient: Thomas Lb CAMPOS Provider: Mary Centeno DPM :1955 A ge:69 Y S ex:Male Date:12/09/2024 Address:[address] [place], [place] [id number] Pcp:Edwin Saldaña MD Subjective: * Chief Complaints: * * Medical History: Objective: * Vitals: Assessment: Plan: * Treatment: * Images: * The named appointment provid er may or may not be the originator of this progress note, and it is not deemed complete until electronically signed by the appointment provider. Sign off status: Pending * Provider: Mary Centeno DPM Date: 0 12/09/2024 Generated for Printi ng/Faxing/eTransmitting on: 01:05 PM EDT
[2025-02-13 10:45] VITALS: BP 130/70; PULSE 61; O2SAT 97; BMI 32.0
--- NOTE | 2025-02-13 10:45 | A.OFFPC_ITS ---
Vital Signs 02/13/25 10:45 Height 5 ft 5.35 in Weight 194 lb 2 oz BMI 32.0 BP 130/70 Blood Pressure Location Lt brachial Position Sitting Pulse 61 Pulse Source Pulse Oximeter Pulse Oximetry (%) 97 Oxygen Delivery Method Room Air Intake Visit Reasons: 3 mnth f/u Sample Distributor Required: No Accompanied by: Self / Same As Patient Allergies shell fish Allergy (Mild, Uncoded 02/13/25 10:59) sweating and an itchy throat. Medication List - Last Reconciled 02/13/25 by Lucien Luevano PA-C albuterol sulfate 90 mcg/actuation 2 puffs inhalation Q8H 30 days atorvastatin 10 mg PO DAILY 90 days escitalopram oxalate 10 mg PO DAILY 90 days losartan 100 mg PO DAILY 90 days metformin ER 500 mg PO DAILY 90 days metoprolol succinate ER 25 mg PO DAILY 90 days omeprazole 20 mg PO DAILY PRN 90 days rivaroxaban (Xarelto) 20 mg PO DAILY Tobacco use date assessed: 02/13/25 Fall risk assessment: No Falls in past year Last assessed Fall Risk: 02/13/25 Dental Screening Dental Screen Date: 02/13/25 Did you have a dental visit in the last 12 months?: Yes Did you have a dental problem in the last 6 months where you did not have access to dental care?: No Was dental information given to patient?: Patient has dentist HPI 3 mn f/u HPI Details Patient is a 69-year-old male here today for follow-up visit Patient has a past medical history significant for hypertension, hyperlipidemia, GERD, type 2 diabetes and AFib, COPD . Concern--> The patient reports experiencing significant emotional distress over the past month after witnessing the traumatic of his dog of nine years. He describes experiencing severe depression and guilt, stating it was the worst month of my life and that he felt like he was going to for the first couple of weeks. He has a history of anxiety and self-treated by doubling his dose of leftover Lexapro a couple of times, which he has now finished. He reports ongoing symptoms of overwhelming anxiety, feeling jittery and fluttery. .. COPD: Patient was a previous smoker, he does use an albuterol inhaler from time to time . He otherwise reports no shortness of breath or regular cough. .. AFib: He continues on Xarelto without overt sent to bleeding. He is under rate control with a beta-radha. He was to see an physician office assistant though unfortunately lost his appointment due to traumatic incident the day before. He promises to call back to reestablish care. He is considering an cardiac ablation .. Hypertension: Blood pressure today in office elevated, he continues on losartan in beta-radha. He does not regularly check his blood pressure at this time. Advised on starting blood pressure monitoring at home and if systolic blood pressures above 140 will consider make an adjustment in antihypertensive medication .. Hyperlipidemia: Patient continues on atorvastatin 10 mg without side effect. PLAN: Will check a fasting lipid to ensure appropriate total cholesterol and LDL .. Type 2 diabetes: Patient continues on metformin 500 mg daily over the past 10- 15 years. Today's A1c is 6.7. .. Class 1 obesity: Patient does understand his BMI is over 30 will continue working being physically active and adapting to better eating habits to reduce his weight PFSH Surgical History No pertinent past surgical history Social History Housing: House Alcohol intake: former Patient Tobacco Use Status: Former Tobacco user e-Cigarette/Vaping Use: Never Used Second Hand Smoke Exposure: No Current occupational status: retired Current occupation: Police office [employer] Cognitive needs: No Hearing needs: No Vision needs: Yes Questionnaire Thrive Questionnaire Date Thrive assessed: 08/07/24 I am a: Patient What is your living situation today?: I have a steady place to live Within the past 12 months, did the food you bought not last and you didn't have the money to get more?: Never true Within the past 12 months, did you worry whether your food would run out before you got money to buy more?: Never true Do you have trouble paying for medicines?: No Do you have trouble getting transportation to medical appointments?: No Do you have trouble paying your heating and electricity bill?: No Do you have trouble taking care of your child, family member or friend?: No Do you have trouble with day-to-day activities such as bathing, preparing meals, shopping, managing finances, etc.?: No Are you currently unemployed and looking for a job?: No Are you interested in more education?: No Please select the resources that you would like help with: None Currently or been in a relationship where the following occur: No concerns reported THRIVE Score: 0 AUDIT C Alcohol Use Questionnaire (AUDIT-C) 1. How often do you have a drink containing alcohol?: Never 3. How often do you have six or more drinks on one occasion?: Never Total Score: 0 JOSE-7 AMB Questionnaire JOSE-7 Date JOSE - 7 assessed: 08/07/24 Source: Developed by Drs. Jeremiah Stewart, Debra Jackson, Shahid hernandez nd colleagues, with an educational alfredo from [employer]. Review of Systems Const Denies headache(s) Eyes Denies loss of vision ENT Denies vertigo, Denies dizziness, Denies headache(s) and Denies sore throat Card Denies chest pain, Denies leg edema and Denies lightheadedness Resp Denies cough, Denies hemoptysis and Denies wheezing GI Denies abdominal pain, Denies melena, Denies constipation, Denies diarrhea and Denies vomiting Denies dysuria, Denies urinary frequency and Denies urinary urgency Musc Denies arthralgias, Denies joint swelling, Denies numbness and Denies tingling Neuro Denies Abnormal speech present, Denies behavioral changes, Denies vertigo, Denies dizziness, Denies headache(s), Denies loss of vision, Denies memory loss, Denies numbness and Denies tingling Psych Denies anxiety, Denies behavioral changes, Denies depression, Denies memory loss and Denies panic attacks Mathew/Lymph Denies easy bleeding and Denies easy bruising Aller/Immun Denies wheezing Physical exam (Primary Care) Vital Signs: Last Vital Signs Pulse 61 02/13/25 10:45 BP 130/70 02/13/25 10:45 Pulse Ox 97 02/13/25 10:45 Oxygen Delivery Method Room Air 02/13/25 10:45 BMI result Body Mass Index 32.0 BMI Assessment/Plan discussion: High BMI High, discussed plan: lifestyle, weight reduction, dietary and physical activity Tobacco/Smoking Status: Tobacco use Status Tobacco use date assessed 02/13/25 02/13/25 10:47 Patient Tobacco Use Status Former Tobacco user 02/13/25 10:47 e-Cigarette/Vaping Use Never Used 02/13/25 10:54 Thrive Assessment: Date of Thrive Assessment Date Thrive assessed 08/07/24 02/13/25 10:47 Currently or been in a relationship where the following occur: No concerns reported Const General: healthy appearing, no acute distress, alert and awake Nutritional Appearance: well nourished Orientation/consciousness: oriented to person, oriented to place and oriented to time HENMT Ears: TM's normal bilaterally General nose exam: Normal nasal mucous membranes and turbinates present Eyes Conjunctivae: conjunctivae normal Sclerae: sclerae normal Pupils: Equal, round and reactive pupils present Neck Neck: Yes no lymphadenopathy and Yes no JVD Thyroid: Thyroid normal Carotids: no bruits Resp Effort & Inspection: normal respiratory effort and not tachypneic Auscultation: no crackles, no rales, no rhonchi and no wheezes Cardio Rate: regular rate Rhythm: regular rhythm Heart sounds: no murmurs and normal S1 and S2 GI Palpation (GI): Soft to palpation, nontender, no hepatomegaly and no splenomegaly Auscultation: normal bowel sounds Skin General skin exam: no rashes or lesions noted and dry skin Neuro General: oriented to person, oriented to place and oriented to time Cranial nerves: Yes Equal, round and reactive pupils present Speech: No Abnormal speech present Gait exam (Neuro): Normal gait present Motor exam (neuro): no tremor noted Extrem Right upper extremity: full ROM Left upper extremity: full ROM Right lower extremity: full ROM; no edema Left lower extremity: full ROM; no edema Psych Mental Status: mental status grossly normal Speech and movement: Normal speech and movement present Affect: normal affect Attitude: cooperative Thought process: Normal thought process present Results AMB Hemoglobin A1c AMB Hemoglobin A1c 6.7 % Last Edit by MAINOR Fitch on 02/13/25 11 :08 Results Reviewed Results Reviewed: Laboratory Last Values Hgb A1c (Clinic) 6.7 % (4.0-6.0) H 02/13/25 10:48 Coding Level of Care Code Est Pt Level 4 (39356) Diagnoses Primary hypertension I10 Hypertension type: primary hypertension Type 2 diabetes mellitus with hyperglycemia, without long-term current use of insulin E11.65 Diabetes mellitus complication status: with hyperglycemia Diabetes mellitus ad terminal makeup operator insulin use: without ad terminal makeup operator use Chronic atrial fibrillation I48.20 Atrial fibrillation type: unspecified chronic Benign prostatic hyperplasia with weak urinary stream N40.1; R39.12 Lower urinary tract symptom detail: weak urinary stream Lower urinary tract symptom presence: symptoms present Centrilobular emphysema J43.2 COPD type: emphysema Emphysema type: centrilobular Class 1 obesity E66.9 Assessment & Plan Assessment & Plan (1) HTN (hypertension): Code(s): I10 - Essential (primary) hypertension Category: Medical Qualifiers: Hypertension type: primary hypertension Qualified Code(s): I10 - Essential (primary) hypertension Plan: Patient's blood pressure acceptable today in office Goal blood pressures to be below 140/90 (2) DMII (diabetes mellitus, type 2): Code(s): E11.9 - Type 2 diabetes mellitus without complications Category: Medical Qualifiers: Diabetes mellitus complication status: with hyperglycemia Diabetes mellitus [facility] insulin use: without ad terminal makeup operator use Qualified Code(s): E11.65 - Type 2 diabetes mellitus with hyperglycemia Plan: Patient's type 2 diabetes well controlled. The current metformin regimen is continued with recommendation to monitor A1c levels to maintain glycemic control. A1c acceptable (3) Afib: Code(s): I48.91 - Unspecified atrial fibrillation Category: Medical Qualifiers: Atrial fibrillation type: unspecified chronic Qualified Code(s): I48.20 - Chronic atrial fibrillation, unspecified Plan: A referral to an physician office assistant for evaluation of candidacy for cardiac ablation was considered given current palpitations (4) BPH (benign prostatic hyperplasia): Code(s): N40.0 - Benign prostatic hyperplasia without lower urinary tract symptoms Category: Medical Qualifiers: Lower urinary tract symptom detail: weak urinary stream Lower urinary tract symptom presence: symptoms present Qualified Code(s): N40.1 - Benign prostatic hyperplasia with lower urinary tract symptoms; R39.12 - Poor urinary stream Plan: Patient does admit to nocturia. Discuss the possibility of starting tamsulosin. Not interested in starting new medication at this time Will check a PSA on upcoming labs (5) COPD (chronic obstructive pulmonary disease): Code(s): J44.9 - Chronic obstructive pulmonary disease, unspecified Category: Medical Qualifiers: COPD type: emphysema Emphysema type: centrilobular Qualified Code(s): J43.2 - Centrilobular emphysema Plan: Former smoker, does use albuterol inhaler from time to time. Otherwise he does not report many pulmonary symptoms. (6) Class 1 obesity: Code(s): E66.9 - Obesity, unspecified Category: Medical Plan: Patient does understand his BMI is over 30 will work on being more physically active and adapt to better eating habits to reduce his weight Orders: Orders AMB Hemoglobin A1c Today Z13.9 - Encounter for screening, unspecified Medications: New lorazepam 0.5 mg PO BEDTIME PRN 10 tabs 0RF anxiety 10 days F41.9 - Anxiety disorder, unspecified Refilled escitalopram oxalate 10 mg PO DAILY 90 tabs 1RF 90 days F41.9 - Anxiety disorder, unspecified Patient Instructions: Goal: Blood pressure to remain below 130/90, A1c to remain below 7.0 Barriers: Adherence to physical activity and healthy eating habits
--- OUTSIDE RECORDS SUMMARY | 2025-02-13 13:05 | XMS_ITS | Patient Health Record ---
Author Organization [facility] [place] Address [address] [place] [address] Care Team Providers Care Cloth Boil Off Machine Operator Name Role Phone Giuseppe Gary Unavailable [phone] Migration, Provider Unavailable Unavailable Reason For Referral No Information Encounters Encounter Location Date Provider Diagnosis [facility], [address] [phone] 05/02/2024 Provider Migration [facility] [place] [facility], [address] [address] 05/22/2024 Giuseppe Gary [facility], [place] [address] [address] 05/22/2024 Provider Migration [facility] [place] [address] [address] 06/14/2024 Giuseppe Gary [facility] [place] [address] [address] 07/08/2024 Provider Migration [facility] [place] [facility], [address] [address] 07/08/2024 Giuseppe Gary [facility] [place] [facility], [address] [address] 08/07/2024 Giuseppe Gary Plan Of Treatment No Information Insurance Providers Payer Name Payer Address Payer Phone Subscriber Number Group Number Insured Name Patient Relationship to Insured Coverage Start Date Coverage End Date A [employer] [address] [place] [phone] [id number] ZEYAD VILLAGOMEZ Self - patient is the insured [employer] [address] [place] [address] [id number] ZEYAD VILLAGOMEZ Self - patient is the insured
--- OUTSIDE RECORDS SUMMARY | 2025-02-13 13:06 | XMS_ITS | Clinical Summary ---
Author Organization [facility] Address [address] [place] [address] Care Team Providers Care Miniature Set Builder Name Role Phone Edwin Saldaña MD Primary [...] Health Maintenance Due Date Last Done Comments Colorectal Cancer Screening: Colonoscopy 1957 Diabetes: Annual GFR (Glomer ular Filtration Rate) 1957 Diabetes: Annual Foot Exam 1967 Diabetes: Annual Retina Eye Exam 1967 DTaP,Tdap,and Td Vaccines (1 - Tdap) 1976 Pneumococcal Vaccine: 50+ Ye ars (1 of 1 - PCV) 2007 Zoster Vaccines (1 of 2) 2007 Abdominal Aortic Aneurysm (A AA) Screen 03/26/2022 Cholesterol Screening (Lipid Panel) 03/26/2022 Diabetes: Annual Urine Albumin-Creatinine Ratio (uACR) 03/26/2022 Diabetes: Blood Sugar Contro l Test (HGBA1C) 03/26/2022 Hepatitis C Screening 03/26/2022 Hypertension/CHF/CAD Annual BMP Blood Test 03/26/2022 Medicare Annual Wellness Visit 03/26/2022 Social Influencers of Health Screening 03/26/2022 Falls Risk Assessment 2022 Depression Screening 04/17/2024 COVID-19 Vaccine (1 - 2023-2 5 season) 2024 Influenza Vaccine (#1) 2024 RSV Immunization Adult [...] age to complete this topic Care Teams Miniature Set Builder Relationship Specialty Start Date End Date Edwin Saldaña MD [address] [place] [address] [address] [place], [place] PCP - General Internal Medicine 06/18/20
--- OUTSIDE RECORDS SUMMARY | 2025-02-13 13:06 | XMS_ITS | Clinical Summary ---
Author Organization [facility] Address [address] [place] [address] Care Team Providers Care Professor Of Philosophy Name Role Phone Unknown, Provider Primary Care Provider Unava ilable Allergies No [...] - 1-dose 75+ series) 2032 Care Teams Professor Of Philosophy Relationship Specialty Start Date End Date Unknown, Provider, PCP - General 05/01/16
--- OUTSIDE RECORDS SUMMARY | 2025-02-13 13:07 | XMS_ITS | Patient Health Record ---
Author Organization [facility] Address [address] [place] [address] Care Team Providers Care Director Of Professional Services Name Role Phone Piper MEDEL, Edwin Primary Care Provider Unav ailDru Vega Unavailable [phone] Allergies Allergen (clinical drug ingredient) Drug/Non Drug Allergy documented on EMR Reaction Allergy Type Onset Date Status Shellfish (FN) Shellfish-derived Products Unknown Drug Allergy Active Reason For Referral No Information Medications Medication SIG (Take, Route, Frequency, Duration) Notes Start Date End Date Status Atenolol 25 MG 1 tablet Orally Once a day; Duration: 30 day(s) Active Lexapro Active Extra Depth Orthopedic Shoes (1 Pair) with Customized Heat Molded Multidensity Innersoles (3 Pair) as directed Dx: NIDDM (E11.9), Hammertoe Foot Deformity (M20.41,M20.42), Preulcerative Skin Lesion(s) (L85.1) 12/13/2023 Active Atorvastatin Calcium 10 MG 1 tablet Orally Once a day; Duration: 30 day(s) Active metFORMIN HCl ER 500 MG TAKE 1 TABLET BY MOUTH EVERY DAY Oral; Duration: 90 Active Losartan Potassium 100 MG 1 tablet Orally Once a day; Duration: 30 day(s) Active Xarelto 20 MG 1 tablet with food Orally Once a day; Duration: 30 day(s) Active Omeprazole 40 MG TAKE ONE CAPSULE BY MOUTH EVERY DAY ONE HOUR BEFORE A MEAL Oral; Duration: 30 Active Aspirin Not-Taking Voltaren 1 % as directed External ly apply bid to toes; Duration: 30 days Active Immunizations Vaccine Route Administration [...] Problem Acquired hammer toe of right foot (508080082680807 5) Other hammer toe(s) (acquired), right foot (M20.41) Active confirmed Problem Acquired hammer toe of left foot ([id number] 3) Other hammer toe(s) (acquired), left foot (M20.42) Active confirmed Problem Type II diabetes mellitus without complication (488687146) Type 2 diabetes mellitus without complication (E11.9) Active confirmed Encounters Encounter Location Date Provider Diagnosis [facility] [address] [address] 12/09/2024 Dru Centeno Plan Of Treatment Pending Test Test Name Order Date X ray : Foot, left 3V 05/12/2020 X ray : Foot, right 3V 05/12/2020 X ray : Foot, right 3V 12/13/2023 [id number]-Bhrf Destruction, -14 07/13/2015 [id number]-Owmk Destruction, -14 07/29/2015 67191-Ionr Destruction, -08/12/2015 88216-Vkkd Destruction, -09/02/2015 41766-Jvwh Destruction, -14 09/30/2015 13022-WTII SKIN LESIONS, OVER 4 03/27/20 20 [id number]-JCXA SKIN LESIONS, OVER 4 08/12/19 21 [id number]-IASG SKIN LESIONS, OVER 4 04/27/19 22 Insurance Providers Payer Name Payer Address Payer Phone Subscriber Number Group Number Insured Name Patient Relationship to Insured Coverage Start Date Coverage End Date Medicare [employer] [address] [place] [address] [id number] Lb Conte Self - patient is the insured Medical (General) History Medical History History ICD Code Hypertension Chicken pox Cholesterol Diabetic High blood pressure Lyme disease Reflux Surgical History Surgery Date(Month/Year) left knee arthroscopy 10 yrs ago & 20 yr s ago Hospitalization History Reason Date(Month/Year) [facility], Anxiety 02/2020 [facility], Anxiety 02/2020
== END 2025-02-13 13:25 | disposition home or self-care (01) ==
LOC: HO.HMCH 10:38
PROVIDERS: Visit Provider Physician Assistant
DX: E11.65 Type 2 diabetes mellitus with hyperglycemia (principal); I48.20 Chronic atrial fibrillation, unspecified; J43.2 Centrilobular emphysema; E66.9 Obesity, unspecified; Z68.32 Body mass index [BMI] 32.0-32.9, adult; I10 Essential (primary) hypertension; N40.1 Benign prostatic hyperplasia with lower urinary tract symptoms; R39.12 Poor urinary stream

== ENCOUNTER → 2025-02-13 10:37 | Outpatient (BNVA) | payer MEDICARE, SELFPAY | PROVIDERS: Visit Provider Physician Assistant | DX: I10 Essential (primary) hypertension (principal); E11.65 Type 2 diabetes mellitus with hyperglycemia; I48.20 Chronic atrial fibrillation, unspecified; N40.1 Benign prostatic hyperplasia with lower urinary tract symptoms; R39.12 Poor urinary stream; J43.2 Centrilobular emphysema; E66.9 Obesity, unspecified; Z68.32 Body mass index [BMI] 32.0-32.9, adult; Z87.891 Personal history of nicotine dependence; Z71.3 Dietary counseling and surveillance; Z79.84 Long term (current) use of oral hypoglycemic drugs; Z79.899 Other long term (current) drug therapy | CPT/HCPCS: 83036; 99212 ==